=== PATIENT | male | born 1945 | race Caucasian/White ===

== ENCOUNTER 2018-11-27 11:18 | Observation (INO) | payer MEDICARE ==
[2018-11-20 11:57] LABS: BASOPHILS # (AUTO) 0.1 (0.0-0.1); BASOPHILS % 0.9 % (0.0-1.0); EOSINOPHILS # (AUTO) 0.2 (0.0-0.4); EOSINOPHILS % 2.7 % (0.0-6.0); HEMATOCRIT 48.8 % (38.2-49.6); HEMOGLOBIN 16.6 g/dL (14.0-18.0); LYMPHOCYTES # (AUTO) 1.5 (1.0-3.2); LYMPHOCYTES % 18.3 % (18.0-39.1); MEAN CORPUSCULAR HEMOGLOBIN 30.1 pg (28-32); MEAN CORPUSCULAR VOLUME 88.4 fL (81-99); MONOCYTES # (AUTO) 0.8 (0.2-0.8); MONOCYTES % 9.7 % (4.4-11.3); NEUTROPHILS # (AUTO) 5.6 (2.1-6.9); NEUTROPHILS % 68.2 % (38.7-80.0); PLATELET COUNT 182 x10e3/uL (140-360); RED BLOOD COUNT 5.52 x10e6/uL (4.3-5.7); RED CELL DISTRIBUTION WIDTH 13.5 % (11.7-14.4)
[2018-11-20 12:11] LABS: ALANINE AMINOTRANSFERASE 23 IU/L (0-55); ALBUMIN/GLOBULIN RATIO 1.4 (0.8-2.0); ALKALINE PHOSPHATASE 94 IU/L (40-150); ANION GAP 14.3 mmol/L (8-16); BLOOD UREA NITROGEN 18 mg/dL (7-26); BUN/CREATININE RATIO 18 (6-25); CALCIUM 9.6 mg/dL (8.4-10.2); CARBON DIOXIDE 26 mmol/L (22-29); CHLORIDE 105 mmol/L (98-107); CREATININE, SERUM 1.01 mg/dL (0.72-1.25); EST GLOMERULAR FILTRATION RATE > 60 ML/MIN (60-); GLUCOSE 78 mg/dL (74-118); POTASSIUM 4.3 mmol/L (3.5-5.1); SODIUM 141 mmol/L (136-145)
--- NOTE | 2018-11-20 13:14 | Diagnostic Imaging Report ---
PROCEDURE: X-RAY CHEST, TWO VIEWS COMPARISON: 11/11/2013 INDICATIONS: PRE OP FOR KIDNEY STONE SX FINDINGS: Lungs are well-inflated. No focal airspace consolidation, pleural effusion, or pneumothorax. Stable cardiomediastinal contour with postsurgical changes of the mediastinum and surgical hardware in the anterior chest wall. Right upper quadrant surgical clips also unchanged and likely related to prior cholecystectomy. Calcified granuloma left midlung also unchanged. No acute osseous abnormality. CONCLUSION: No acute cardiopulmonary abnormality. Dictated by: Preet Heck M.D. on 11/20/2018 at 13:18 Electronically approved by: Preet Heck M.D. on 11/20/2018 at 13:18
[~2018-11-27] VITALS: Ht 177.8 cm; Wt 93.0 kg
[~2018-11-27 11:18] MED LIST: ASPIR 8181 MG PO; ATORVASTATIN CA40 MG PO; CEPHALEXIN500 MG PO; DIOVAN80 MG PO; FINASTERIDE5 MG PO; FLOMAX0.4 MG PO; KEFLEX250 MG PO; KEFLEX500 MG PO; LOSARTAN POTASS50 MG PO; MACROBID 100 M100 MG PO; VIT B12 PO; VIT D PO
--- OUTSIDE RECORDS SUMMARY | 2018-11-27 11:20 | XMS REPORT ---
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 Allergies, Adverse Reactions, Alerts This patient has no known allergies or adverse reactions. Medications This patient has no known medications. Results Test Description Test Time Test Comments Text Results Atomic Results Result Comments CHEST 2 VIEWS 2018-11-20 13:18:00 [place] [address] Patient Name: LISSETH FERGUSON MR #: [id number] : 1945 Age/Sex: 73/M Req #: [id number] Adm Physician: Ordered by: LAKSHMI BAH MD Report #: [id number] Location: OR Room/Bed: Procedure: [id number] DX/CHEST 2 VIEWS Exam Date: 11/20/18 Exam Time: 1100 REPORT STATUS: Signed PROCEDURE: X-RAY CHEST, TWO VIEWS COMPARISON: 11/11/2013 IN DICATIONS: PRE OP FOR KIDNEY STONE SX FINDINGS: Lungs are well-inflated. No focal airspace consolidation, pleural effusion, or pneumothorax. Stable cardiomediastinal contour with postsurgical changes of the mediastinum and surgical hardware in the anterior chest wall. Right upper quadrant surgical clips also unchanged and likely related to prior cholecystectomy. Calcified granuloma left midlung also unchanged. No acute osseous abnormality. CONCLUSION: No acute cardiopulmonary abnormality. Dictated by: Lynette Mahmood M.D. on 11/20/2018 at 13:18 Electronically approved by: Lynette Mahmood M.D. on 11/20/2018 at 13:18 Dictated By: LYNETTE MAHMOOD MD 17 Transcribed By: NAHUM on 11/20/181317 COPY TO: LAKSHMI BAH MD FLUORO GUIDANCE [address]/REM [facility] [address] [place] [address] Patient Name: LISSETH FERGUSON MR #: [id number] : 1945 Age/Sex: 71/M Req #: [id number] Adm Physician: Ordered by: PEDRITO ROJO MD Report #: [id number] Location: DX Room/Bed: Procedure: [id number] DX/FLUORO GUIDANCE FRED [address]/REM Exam Date: 02/28/17 Exam Time: 1430 REPORT STATUS: Signed PROCEDURE: FLUORO GUIDANCE FRED [address] PL/REM COMPARISON: None. INDICATIONS: Central venous catheter. FINDINGS: Focused physical examination demonstrated a non-tunneled right subclavian central venous catheter. A body designer film was obtained which demonstrated the right subclavian temporary central venous catheter with tip projecting over the expected region of the right atrium. The existing catheter was prepped and draped in usual sterile fashion. The sutures were cut. The catheter was removed. Visual section of the catheter demonstrated the catheter to be intact. Hemostasis was obtained with manual pressure. A sterile dressing was applied. A postprocedure image was obtained. There were no immediate complications. The patient tolerated the procedure well. CONCLUSION: Suc cessful removal of the right subclavian central venous catheter with fluoroscopic guidance. Dictated by: Lisseth Dennison M.D. on 02/28/2017 at 15:03 Electronically approved by: Lisseth Dennison M.D. on 02/28/2017 at 15:03 Dictated By: LISSETH DENNISON MD 150 Transcribed By: NAHUM on 02/28/17 1503 COPY TO: PEDRITO ROJO MD ABDOMEN-1VIEW (KUB) [place] [address] Patient Name: LISSETH FERGUSON MR #: [id number] : 1945 Age/Sex: 71/M Req #: [id number] Adm Physician: SUMIT MENA MD Ordered by: HUGO CARVAJAL MD Report #: [id number] Location: ICU Room/Bed: [place] [address] Procedure: [id number] DX/ABDOMEN-1VIEW (KUB) Exam Date: 02/07/17 Exam Time: 0935 REPORT STATUS: Signed PROCEDURE: X-RAY ABDOMEN - KUB COMPARISON: 12/14/2016. INDICATIONS: CALCULUS OF KIDNEY FINDINGS: The bowel gas pattern shows no dilated, air-filled loops of bowel. Previously described calcification projecting over the left renal shadow is not clearly identified on current study, nor are the multiple ovoid pelvic calcifications described on the comparison. Regional skeletal structures are intact. Degenerative disc changes of the lower lumbar spine. Surgical clips project over the right upper quadrant of the abdomen compatible with prior cholecystectomy. CONCLUSION: Bladder and left renal calculi described on the comparison examination are not clearly identified on the current study. Dictated by: Lynette Mahmood M.D. on 02/07/2017 at 10:27 Electronically approved by: Lynette Mahmood M.D. on 02/07/2017 at 10:27 Dictated By: LYNETTE MAHMOOD MD 1027 Transcribed By: NAHUM on 02/07/17 1027 COPY TO: HUGO CARVAJAL MD CHEST SINGLE (PORTABLE) [place] [address] Patient Name: LISSETH FERGUSON MR #: [id number] : 1945 Age/Sex: 71/M Req #: [id number] Adm Physician: SUMIT MENA MD Ordered by: ESTUARDO TANNER MD Report #: [id number] Location: ICU Room/Bed: [place] [address] Procedure: [id number] DX/CHEST SINGLE (PORTABLE) Exam Date: 02/07/17 Exam Time: 0515 REPORT STATUS: Signed CHEST SINGLE (PORTABLE), 02/07/2017 5:00 AM Technique: CHEST SINGLE (PORTABLE) Comparison: 02/06/2017 Clinical history: Pneumonia Findings: Limited portable view. Anterior chest hardware again noted. Stable cardiac silhouette. Mild central perihilar/interstitial opacity, similar to prior. Impression: 1. Lines/Tubes: Right central venous catheter tip near the cavoatrial junction. 2. No significant change. Signed by: Dr Shayy Wilkes MD on 02/07/2017 6:01 AM Dictated By: SHAYY WILKES MD 06 Transcribed By: HAYDER on 02/07/17 06 COPY TO: ESTUARDO TANNER MD CHEST XRAY LINE PLACEMENT [facility] [address] [place] [address] Patient Name: LISSETH FERGUSON MR #: [id number] : 1945 Age/Sex: 71/M Req #: [id number] Adm Physician: SUMIT MENA MD Ordered by: ESTUARDO TANNER MD Report #: [id number] Location: [facility] Room/Bed: [place] [address] Procedure: [id number] DX/CHEST XRAY LINE PLACEMENT Exam Date: 02/06/17 Exam Time: 1210 REPORT STATUS: Signed PROCEDURE: CHEST XRAY LINE PLACEMENT COMPARISON: Chest x-ray, 02/06/17, 1001 hrs. INDICATIONS: LINE PLACEMENT FINDINGS: Lines and tubes: Interval placement of right subclavian catheter. The catheter is partially obscured by the mediastinum due to patient rotation. Catheter tip appears to extend to the lower SVC. Cardiac silhouette remains mildly enlarged. Again noted is haziness at the left lung base likely due to a combination of atelectasis and epicardial fat-pad, accentuated by low lung volumes. No pneumothorax. Upper abdomen unremarkable with no free air. No acute bony abnormality. Hardware on the anterior chest wall again noted. CONCLUSION: 1. No acute change in appearance of the chest. 2. Interval placement of right subclavian catheter extending to the lower SVC. No pneumothorax. Dictated by: Estuardo Rivero M.D. on 02/06/2017 at 12:36 Electronically approved by: Estuardo Rivero M.D. on 02/06/2017 at 12:36 Dictated By: ESTUARDO RIVERO MD 1236 Transcribed By: NAHUM on 02/06/17 1236 COPY TO: ESTUARDO TANNER MD CHEST SINGLE (PORTABLE) [place] [address] Patient Name: LISSETH FERGUSON MR #: [id number] : 1945 Age/Sex: 71/M Req #: [id number] Adm Physician: Ordered by: ESTUARDO TANNER MD Report #: [id number] Location: ER Room/Bed: Procedure: [id number] DX/CHEST SINGLE (PORTABLE) Exam Date: 02/06/17 Exam Time: 1008 REPORT STATUS: Signed PROCEDURE: CHEST SINGLE (PORTABLE) COMPARISON: Chest x-ray, 11/11/13 INDICATIONS: FEVER, ANXIETY FINDINGS: Lines and tubes: None The cardiac silhouette is moderately enlarged. There is haziness at the left lung base, likely representing a combination of atelectasis and overlying epicardial fat pad. Trace left pleural effusion may also be present, likely accentuated by low lung volumes. Right lung is expanded and clear. No pneumothorax. Upper abdomen unremarkable with no free air. Hardware along the anterior chest wall is again noted. Surgical clips are also seen in the left cervical area. CONCLUSION: Atelectasis and trace effusion at the left lung base, likely accentuated by low lung volumes. Mild enlargement of the cardiac silhouette. Dictated by: Estuardo Rivero M.D. on 02/06/2017 at 10:48 Electronically approved by: Estuardo Rivero M.D. on 02/06/2017 at 10:48 Dictated By: ESTUARDO RIVERO MD 1048 Transcribed By: NAHUM on 02/06/178 COPY TO: ESTUARDO TANNER MD
[2018-11-27] MEDS ORDERED: MEROPENEM 1GM 100 ML IV ONE (11:45)
[2018-11-27] MEDS ORDERED: CIPRO500 MG PO (11:59)
[2018-11-27] MEDS ORDERED: IOPAMIDOL 610MG/1ML 300 MG/ML VIAL IV ONE (13:11)
[2018-11-27] MEDS ORDERED: B&O 60MG R/S 60 MG SUPP PR ONE (15:07)
[2018-11-27] MEDS ORDERED: FENTANYL CITRATE/PF 100MCG/2 ML INJ ONE ×2 (16:02→18:46)
[2018-11-27] MEDS ORDERED: ONDANSETRON HCL INJ 2MG/ML 2ML 2 MG/ML VIAL ONE (16:12)
[2018-11-27 17:30] VITALS: BP 141/77
[2018-11-27] MEDS ORDERED: HYDROCODONE/APAP 5MG-325MG TAB PO PRN (17:30)
[2018-11-27] MEDS ORDERED: BELLADONNA RC PRN (17:30)
[2018-11-27] MEDS: LACTATED RINGER'S 1,000 ML IV SCH (17:50)
[2018-11-27] MEDS ORDERED: B&O 60MG R/S 60 MG SUPP PR PRN (18:00)
[2018-11-27] MEDS ORDERED: MIDAZOLAM HCL 2 MG/2 ML VIAL ONE (18:46)
[2018-11-27] MEDS: CIPROFLOXACIN 500 MG TAB PO SCH (18:48)
[2018-11-27] MEDS: MEROPENEM 1GM 100 ML IV SCH (18:48)
[2018-11-27 19:14] VITALS: BP 141/77
[2018-11-27 19:15] VITALS: BP 141/77
[2018-11-27 20:00] VITALS: BP 129/79
--- NOTE | 2018-11-27 20:01 | Operative Report ---
DATE OF PROCEDURE: 11/27/2018 SURGEON: Bernardo Lucas MD PREOPERATIVE DIAGNOSES: Urinary retention, severe trabeculated bladder, 4 to 5 cm bladder stone. POSTOPERATIVE DIAGNOSES: Urinary retention, severe trabeculated bladder, 4 to 5 cm bladder stone. OPERATIONS PERFORMED: Cystoscopy, laser lithotripsy, retrograde pyelogram, and transurethral resection and plasma vaporization of the prostate with bipolar energy. FINDINGS: A very large prostate, very large intravesical component, severe trabeculation with cellules and saccules as well as two diverticulum, one in particular right by the trigone. The ureteral orifice on the left side was the only one seen. PROCEDURE IN DETAIL: With the patient under satisfactory general anesthesia, the patient was placed in the supine position on the operating table, legs were placed on stirrups, genitalia was then prepped with Betadine soap and solution and draped in usual manner. A time-out was obtained. Everybody agreed with the procedure as planned. At this point, cystoscopy was performed with a 22-Macedonian cystoscope. A single stone was identified in the bladder. I looked for any other stone particularly in the large diverticulum and I could not see any. The stone was then treated with the laser lithotripsy 550 fiber at 2.5 berry. Multiple shocks were given to the stone until the stone was broken into multiple fragments and these fragments were then elicited out of the bladder. The stones were sent in for analysis. At this point, the cystoscope was removed and replaced with a continuous-flow resectoscope. Using the loop electrode first, TUR was done without any complications. Approximately 35 to 40 g of tissue was removed. The button electrode was then introduced and plasma vaporization of the remaining tissue was done with electrocauterization to control bleeding. Once that was done and accomplished then I rechecked the bladder again. Ellik evacuator was used to remove all of the prostatic chips from the bladder as well as any remaining bladder stone fragments. I checked to make sure there were no fragments of stones or tissue inside the large diverticulum and at this point instruments were removed, replaced with a 22-Macedonian Jonas catheter. Irrigation was done until the return was clear, and B and O suppository were placed in the rectum. The patient was then taken to recovery room in satisfactory condition. DISCHARGE INSTRUCTIONS: The patient was kept overnight for observation. The patient had bypass surgery and stents and a consultation with his director of photography, Dr. Burger was obtained. The next day, Dr. Burger agreed with this discharge and the patient was urologically stable. He was sent home on tramadol and Cipro. He is to continue all his other medications except aspirin. He will be seen in the office on Sunday five days from now to remove the Jonas and give him a voiding trial. I discussed this with the and I told her without fail that he was going to have severe urgency and that urgency may remain for 4 to 8 weeks and we may have to give him anticholinergics to relax the bladder. I also gave her a picture that I took in the case of the stone. If the patient has to stay an extra day, I will be dictating a separate discharge summary to relay the reason why the patient stayed. MD AMADOR Garner/MODL /[id number]
[2018-11-27 20:30] VITALS: BP 129/79
[2018-11-27] MEDS ORDERED: ATORVASTATIN 40 MG TAB PO SCH (21:00)
[2018-11-27] MEDS ORDERED: VALSARTAN 80 MG TAB PO SCH (21:00)
[2018-11-27] MEDS ORDERED: NON-FORMULARY MEDICATION (Atorvastatin Calcium 40 MG) PO SCH (21:00)
[2018-11-27] MEDS: TAMSULOSIN HCL 0.4 MG CAP PO SCH (21:54)
--- NOTE | 2018-11-27 21:55 | NUR ---
NO RESPIRATORY DISTRESS OBSERVED, GAMEZ CATHETER INTACT WITH URINE COLOR CLEARING OUT. NORCO OFFER FOR PAIN BUT THE PATIENT REFUSED THE MEDICATION AND STATED "I'M NOT HURTING AT THIS TIME." CALL LIGHT WITHIN EASY REACH, ASSISTED WITH ADLS, HE'S TOLD TO CALL FOR ASSISTANCE NEEDED.
[2018-11-28] VITALS: BP 127/67
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
--- NOTE | 2018-11-28 01:35 | NUR ---
ROUNDS MADE, PATIENT ASLEEP BUT EASY TO AROUSE. HE DENIES PAIN, NO RESPIRATORY DISTRESS OBSERVED AND HIS URINE IS CLEARING OUT.
[2018-11-28] MEDS: MEROPENEM 1GM 100 ML IV SCH ×2 (02:09→10:06)
[2018-11-28] MEDS: LACTATED RINGER'S 1,000 ML IV SCH ×2 (02:09→09:40)
[2018-11-28 04:00] VITALS: BP 119/71
--- NOTE | 2018-11-28 04:37 | NUR ---
PATIENT ASLEEP, HE'S EASY TO AROUSE. NO RESPIRATORY DISTRESS OBSERVED, HE DENIES PAIN. CALL LIGHT WITHIN EASY REACH, URINE LIGHT PINK IN THE COLLECTING TUBE WITHOUT CLOTS.
[2018-11-28 08:28] VITALS: BP 134/64
[2018-11-28] MEDS: CIPROFLOXACIN 500 MG TAB PO SCH (09:00)
[2018-11-28] MEDS: TAMSULOSIN HCL 0.4 MG CAP PO SCH (09:00)
[2018-11-28 10:45] VITALS: BP 134/64
[2018-11-28 12:54] VITALS: BP 151/68
--- NOTE | 2018-11-28 13:16 | Diagnostic Imaging Report ---
Date and Time: 11/27/2018 Procedure: Retrograde pyelogram image guidance Pre-operative diagnosis: Bladder calculi Post-operative diagnosis: Same Radiation Data: Exposures: 0 Fluoro time: 00:00:25 Cumulative area dose product: 290.24 cGycm2 Cumulative air kerma: 8.12 mGy DISCUSSION: Retrograde polygrams injection of the left ureter demonstrates patent flow of contrast with no filling defect to suggest stone, mass, or other obstructive lesion. No hydronephrosis. FINDINGS: Patent left ureter. IMPRESSION: Retrograde pyelogram showing patent retrograde flow of contrast through left ureter. No evidence of obstruction or stenosis. Signed by: Jerome Mccray MD on 11/28/2018 1:13 PM
[2018-11-28] MEDS ORDERED: ONDANSETRON HCL INJ 2MG/ML 2ML 2 MG/ML VIAL ONE (19:40)
[2018-11-28] MEDS ORDERED: SEVOFLURANE INHAL SOLN 250 ML PEN BTL ONE (19:40)
[2018-11-28] MEDS ORDERED: PROPOFOL IV EMULSION 10 MG/ML 20 ML VIAL ONE (19:40)
[2018-11-28] MEDS ORDERED: ACETAMINOPHEN 1000 MG/100 ML IV ONE (19:40)
[2018-11-28] MEDS ORDERED: LIDOCAINE HCL 2% LOCAL INJ 5 ML SDV VIAL INJ ONE (19:40)
[2018-11-28] MEDS ORDERED: DEXAMETHASONE SOD PHOS INJ 4 MG/ML VIAL ONE (19:40)
== END 2018-11-28 13:36 | disposition home or self-care (01) ==
LOC: OR 11:18 → PACU V 15:35 → MED/SURG 16:22
PROVIDERS: ADMIT Urology; ATTEND Urology
DX: N21.0 Calculus in bladder (principal); E78.5 Hyperlipidemia, unspecified; I25.2 Old myocardial infarction; I25.10 Atherosclerotic heart disease of native coronary artery without angina pectoris; Z95.1 Presence of aortocoronary bypass graft; I65.29 Occlusion and stenosis of unspecified carotid artery; Z87.442 Personal history of urinary calculi; Z87.891 Personal history of nicotine dependence; N40.1 Benign prostatic hyperplasia with lower urinary tract symptoms; R33.8 Other retention of urine; N32.89 Other specified disorders of bladder
CPT/HCPCS: 36415; 52318; 52601; 71046; 74420; 80053; 85025; 87086; 87186 ×2; 88300; 88305; 88342; 93005; 96367; C1758; G0378 ×2; J0131; J1100; J2001; J2185 ×2; J2250; J2405 ×2; J2704; J7121; Q9967; J3010

== ENCOUNTER 2019-11-24 04:01 | Inpatient (IN) | payer OTHER ==
[~2019-11-24] VITALS: Ht 177.8 cm; Wt 100.2 kg
[2019-11-24] VITALS (17 sets, daily range): BP systolic 122–173; BP diastolic 61–91
[~2019-11-24 04:01] MED LIST changes: +CIPRO500 MG PO
[2019-11-24] MEDS ORDERED: SODIUM CHLORIDE 0.9% 1000ML 1,000 ML IV STA (04:13)
--- NOTE | 2019-11-24 04:16 | Emergency Department Note ---
History of Present Illnes History of Present Illness History of Present Illness This is a 74 year old male brought by EMS CP 45 min prior to arrival. Prior to arrival patient was in ventricular tachycardia and was defibrillated. Arrived in respiratory distress. Patient seen in Bed 8 in extremis, combative and markedly confused Historian: Four H Agent/EMS Arrival Mode: [place] Onset (how long ago): minute(s) (30) Severity: severe Onset quality: sudden Duration (how long): hour(s) (1) Timing of current episode: constant Progression: worsening Associated symptoms: Reports confusion, Reports chest pain, Reports shortness of breath Treatments prior to arrival: none Past Medical/Family History Physician Review I have reviewed the patient's past medical and family history. Any updates have been documented here. Past Medical History Unable to obtain PMH: altered mental status Other Medical History: HIGH CHOLESTEROL Other Surgery: BYPASS SURGERY 6 VESSELS IN 2005 KIDNEY STONES REMOVED Lithotripsy Social History Smoking Cessation: Never Smoker Alcohol Use: None Any Illegal Drug Use: No Other Last Tetanus: UTD Review of Systems Review of Systems Constitutional: Reports no symptoms EENTM: Reports no symptoms Cardiovascular: Reports chest pain Respiratory: Reports dyspnea Gastrointestinal: Reports no symptoms Genitourinary: Reports no symptoms Musculoskeletal: Reports no symptoms Integumentary: Reports no symptoms Neurological: Reports no symptoms Psychological: Reports no symptoms Endocrine: Reports no symptoms Hematological/Lymphatic: Reports no symptoms Physical Exam Related Data Allergies: Coded Allergies: adhesive tape (Verified Allergy, Unknown, 02/06/17) morphine (Verified Allergy, Unknown, 02/06/17) Triage Vital Signs Vital Signs Date Time Temp Pulse Resp B/P (MAP) Pulse Ox O2 Delivery O2 Flow Rate FiO2 11/24/19 04:02 97.2 76 17 149/80 100 Nasal Cannula 3.0 Vital signs reviewed: Yes Physical Exam CONSTITUTIONAL Constitutional: Present morbidly obese, Present distressed, Present ill appearing HENT HENT: Present normocephalic, Present atraumatic, Present oropharynx clear/moist, Present nose normal HENT L/R: Present left ext ear normal, Present right ext ear normal EYES Eyes: Reports PERRL, Reports conjunctivae normal NECK Neck: Present ROM normal PULMONARY Pulmonary: Present effort normal, Present breath sounds normal CARDIOVASCULAR Cardiovascular: Present irregular rhythm, Present tachycardia GASTROINTESTINAL Abdominal: Present soft, Present nontender, Present bowel sounds normal GENITOURINARY Genitourinary: Present exam deferred SKIN Skin: Present warm, Present dry MUSCULOSKELETAL Musculoskeletal: Present ROM normal NEUROLOGICAL Neurological: Present alert, Present other (markedly confused); Absent oriented x 3 PSYCHOLOGICAL Psychological: Present other (anxious) Results Laboratory Lab results reviewed: Yes Laboratory comments Laboratory Tests Test 11/24/19 04:21 11/24/19 04:00 Arterial Blood pH 7.39 (7.35-7.45) Arterial Blood Partial Pressure CO2 32 mmHg (35-45) Arterial Blood Partial Pressure O2 95 mmHg (80-105) Arterial Blood HCO3 19 mmol/L (22-26) Arterial Blood Oxygen Saturation 97.0 % (95-98) Arterial Blood Base Excess -6.0 mmol/L (-2 - 3) FiO2 21 % White Blood Count 12.06 x10e3/uL (4.8-10.8) Red Blood Count 5.66 x10e6/uL (4.3-5.7) Hemoglobin 17.0 g/dL (14.0-18.0) Hematocrit 50.7 % (38.2-49.6) Mean Corpuscular Volume 89.6 fL (81-99) Mean Corpuscular Hemoglobin 30.0 pg (28-32) Mean Corpuscular Hemoglobin Concent 33.5 g/dL (31-35) Red Cell Distribution Width 14.0 % (11.7-14.4) Platelet Count 197 x10e3/uL (140-360) Neutrophils (%) (Auto) 48.8 % (38.7-80.0) Lymphocytes (%) (Auto) 37.1 % (18.0-39.1) Monocytes (%) (Auto) 10.0 % (4.4-11.3) Eosinophils (%) (Auto) 3.0 % (0.0-6.0) Basophils (%) (Auto) 0.8 % (0.0-1.0) Neutrophils # (Auto) 5.9 (2.1-6.9) Lymphocytes # (Auto) 4.5 (1.0-3.2) Monocytes # (Auto) 1.2 (0.2-0.8) Eosinophils # (Auto) 0.4 (0.0-0.4) Basophils # (Auto) 0.1 (0.0-0.1) Absolute Immature Granulocyte (auto 0.04 x10e3/uL (0-0.1) Sodium Level 141 mmol/L (136-145) Potassium Level 3.5 mmol/L (3.5-5.1) Chloride Level 107 mmol/L (98-107) Carbon Dioxide Level 22 mmol/L (22-29) Anion Gap 15.5 mmol/L (8-16) Blood Urea Nitrogen 21 mg/dL (7-26) Creatinine 1.17 mg/dL (0.72-1.25) Estimat Glomerular Filtration Rate > 60 ML/MIN (60-) BUN/Creatinine Ratio 18 (6-25) Glucose Level 141 mg/dL (74-118) Lactic Acid Level 5.0 mmol/L (0.5-2.0) Calcium Level 9.5 mg/dL (8.4-10.2) Total Bilirubin 0.8 mg/dL (0.2-1.2) Aspartate Amino Transf (AST/SGOT) 18 IU/L (5-34) Alanine Aminotransferase (ALT/SGPT) 27 IU/L (0-55) Alkaline Phosphatase 78 IU/L (40-150) Creatine Kinase 26 IU/L (30-200) Creatine Kinase MB 0.90 ng/mL (0-5.0) Troponin I 0.010 ng/mL (0-0.300) B-Type Natriuretic Peptide 23.9 pg/mL (0-100) Total Protein 7.2 g/dL (6.5-8.1) Albumin 4.1 g/dL (3.5-5.0) Globulin 3.1 g/dL (2.3-3.5) Albumin/Globulin Ratio 1.3 (0.8-2.0) Imaging Imaging results reviewed: Yes Impressions [place] [id number] Patient Name: LISSETH FERGUSON MR #: [id number] : 1945 Age/Sex: 74/M Req #: [id number] Adm Physician: Ordered by: NICKI ROGERS DO Report #: [id number] Location: ER Room/Bed: Procedure: [id number] CT/CT CHEST W Exam Date: Exam Time: REPORT STATUS: Signed EXAM: CT Chest WITH contrast 11/24/2019 6:21 AM INDICATION: Shortness of breath COMPARISON: None TECHNIQUE: Chest was scanned utilizing a multidetector helical scanner from the lung apex through the level of the adrenal glands without administration of IV contrast. Coronal and sagittal reformations were obtained. Pulmonary embolism protocol was performed. IV CONTRAST: 100 mL of Omnipaque 300 COMPLICATIONS: None RADIATION DOSE: Total DLP: 642 mGy*cm Estimated effective dose: (DLP x 0.014 x size factor) mSv CTDIvol has been reviewed. It is below the limits set by the Radiation Protocol Committee (RPC). Dose modulation, iterative reconstruction, and/or weight based adjustment of the mA/kV was utilized to reduce the radiation dose to as low as reasonably achievable. FINDINGS: LINES/ TUBES: None. LUNGS AND AIRWAYS: No concerning pulmonary mass or consolidation. PLEURA: The pleural spaces are clear. HEART AND MEDIASTINUM: The thyroid gland is normal. No mediastinal, hilar or axillary lymphadenopathy. The heart is mildly enlarged. There is no pericardial effusion. Advanced coronary artery calcifications with surgical change. UPPER ABDOMEN: Surgically absent gallbladder. Partially imaged 3.2 x 3.4 cm soft tissue attenuation nodular focus of the right renal upper pole (image 126). Punctate nonobstructing right intrarenal calculus. BONES: No acute osseous abnormality. Postsurgical and/or posttraumatic changes of the sternum with hardware fixation. SOFT TISSUES: Unremarkable. IMPRESSION: 1. No acute thoracic abnormality. No pulmonary embolus. 2. Incidental partially imaged 3.2 x 3.4 cm nodular focus of the right renal upper pole, otherwise suboptimally evaluated due to technique. This may represent a prominent renal lobulation; however, nonemergent evaluation with a dedicated renal mass protocol CT scan of the abdomen is recommended to exclude renal mass. Signed by: Trinity May MD on 11/24/2019 6:48 AM Dictated By: TRINITY MAY MD 7 Transcribed By: HAYDER on 11/24/19647 COPY TO: NICKI ROGERS DO~ Procedures 12 Lead ECG Interpretation ECG Interpretation : ECG: ECG 1 Hand Rug Braider: Interpreted by ED physician Date: Nov 24, 2019 Time: 03:59 Prior ECG tracings: reviewed Rhythm: atrial fibrillation ST segments normal: No ST segment flattening: V4, V5, V6 Q waves: III Clinical Impression: abnormal ECG ABG Interpretation ABG Results: ABG 1 Interpretation: normal Critical Care Time Total Critical Care Time (min): 32 Critcal care necessary due to: cardiac failure, respiratory failure Critcal care time spent by me: develop tx plan w patient/surrogate, discussion w consultants, discussion w primary provider, examination of patient, obtaining hx from patient/surrogate, order/perform tx or interventions, order/review laboratory studies, order/review radiographic studies, pulse oximetry, re- evaluation of patient condition, review of old charts, vascular access procedures Assessment & Plan Medical Decision Making MDM 74 yom presents with CP . ACS, PE, costocondritis, Chest wall pain, and pneumothorax considered. labs, imaging and EKG reviewed . Plan to admit to the ICU Reassessment Reassessment Case d/w the DR Gerard Burger at 0504 and EKG reviewed. Agreement with STAT echocardiogram. Plan to admit to Dr Nimco Santiago's service to the ICU. Assessment & Plan Final Impression: (1) Ventricular tachycardia (paroxysmal) (2) ACS (acute coronary syndrome) Depart Disposition: ADMITTED Home Meds Reported Medications Ciprofloxacin Hcl (CIPRO) 500 Mg Tablet, 500 MG PO Q12H, #30 TAB 11/27/18 Tamsulosin Hcl* (FLOMAX*) 0.4 Mg Cap, 0.4 MG PO BID, #30 CAP 11/20/18 [Vit D] No Conflict Check, PO DAILY 11/20/18 [Vit B12] No Conflict Check, PO DAILY 11/20/18 Valsartan (DIOVAN) 80 Mg Tab, 40 MG PO HS, TAB 11/20/18 Atorvastatin Calcium (ATORVASTATIN CALCIUM) 40 Mg Tablet, 40 MG PO HS, #90 02/06/17 NICKI ROGERS DO Nov 24, 2019 04:16
[2019-11-24] MEDS ORDERED: NITROGLYCERIN/D5W 200 MCG/ML 250 ML IV STA (04:17)
[2019-11-24 04:29] LABS: ABG HCO3 19 mmol/L (22-26); ABG PCO2 32 mmHg (35-45); ABG PH 7.39 (7.35-7.45); ABG PO2 95 mmHg (80-105)
[2019-11-24 04:35] LABS: BASOPHILS # (AUTO) 0.1 (0.0-0.1); BASOPHILS % 0.8 % (0.0-1.0); EOSINOPHILS # (AUTO) 0.4 (0.0-0.4); HEMATOCRIT 50.7 % (38.2-49.6); LYMPHOCYTES # (AUTO) 4.5 (1.0-3.2); LYMPHOCYTES % 37.1 % (18.0-39.1); MEAN CORPUSCULAR HGB CONC 33.5 g/dL (31-35); MEAN CORPUSCULAR VOLUME 89.6 fL (81-99); MONOCYTES # (AUTO) 1.2 (0.2-0.8); NEUTROPHILS # (AUTO) 5.9 (2.1-6.9); NEUTROPHILS % 48.8 % (38.7-80.0); PLATELET COUNT 197 x10e3/uL (140-360); RED BLOOD COUNT 5.66 x10e6/uL (4.3-5.7)
[2019-11-24 04:57] LABS: ALANINE AMINOTRANSFERASE 27 IU/L (0-55); ALBUMIN 4.1 g/dL (3.5-5.0); ALBUMIN/GLOBULIN RATIO 1.3 (0.8-2.0); ALKALINE PHOSPHATASE 78 IU/L (40-150); ANION GAP 15.5 mmol/L (8-16); BLOOD UREA NITROGEN 21 mg/dL (7-26); BUN/CREATININE RATIO 18 (6-25); CALCIUM 9.5 mg/dL (8.4-10.2); CARBON DIOXIDE 22 mmol/L (22-29); CHLORIDE 107 mmol/L (98-107); CREATINE KINASE 26 IU/L (30-200); CREATININE, SERUM 1.17 mg/dL (0.72-1.25); EST GLOMERULAR FILTRATION RATE > 60 ML/MIN (60-); GLUCOSE 141 mg/dL (74-118); POTASSIUM 3.5 mmol/L (3.5-5.1); SODIUM 141 mmol/L (136-145)
[2019-11-24] MEDS ORDERED: ONDANSETRON HCL INJ 2MG/ML 2ML 2 MG/ML VIAL IV PRN (05:15)
[2019-11-24 05:18] LABS: B-TYPE NATRIURETIC PEPTIDE2 23.9 pg/mL (0-100)
[2019-11-24] MEDS ORDERED: ASPIRIN 325 MG TAB PO STA (05:18)
[2019-11-24] MEDS: PIPER-TAZ 3.375 GM 50 ML IV SCH ×3 (06:48→16:58)
[2019-11-24] MEDS: SODIUM CHLORIDE 0.9% 1000ML 1,000 ML IV SCH ×3 (06:48→16:19)
--- NOTE | 2019-11-24 06:52 | Diagnostic Imaging Report ---
EXAM: CT Chest WITH contrast 11/24/2019 6:21 AM INDICATION: Shortness of breath COMPARISON: None TECHNIQUE: Chest was scanned utilizing a multidetector helical scanner from the lung apex through the level of the adrenal glands without administration of IV contrast. Coronal and sagittal reformations were obtained. Pulmonary embolism protocol was performed. IV CONTRAST: 100 mL of Omnipaque 300 COMPLICATIONS: None RADIATION DOSE: Total DLP: 642 mGy*cm Estimated effective dose: (DLP x 0.014 x size factor) mSv CTDIvol has been reviewed. It is below the limits set by the Radiation Protocol Committee (RPC). Dose modulation, iterative reconstruction, and/or weight based adjustment of the mA/kV was utilized to reduce the radiation dose to as low as reasonably achievable. FINDINGS: LINES/ TUBES: None. LUNGS AND AIRWAYS: No concerning pulmonary mass or consolidation. PLEURA: The pleural spaces are clear. HEART AND MEDIASTINUM: The thyroid gland is normal. No mediastinal, hilar or axillary lymphadenopathy. The heart is mildly enlarged. There is no pericardial effusion. Advanced coronary artery calcifications with surgical change. UPPER ABDOMEN: Surgically absent gallbladder. Partially imaged 3.2 x 3.4 cm soft tissue attenuation nodular focus of the right renal upper pole (image 126). Punctate nonobstructing right intrarenal calculus. BONES: No acute osseous abnormality. Postsurgical and/or posttraumatic changes of the sternum with hardware fixation. SOFT TISSUES: Unremarkable. IMPRESSION: 1. No acute thoracic abnormality. No pulmonary embolus. 2. Incidental partially imaged 3.2 x 3.4 cm nodular focus of the right renal upper pole, otherwise suboptimally evaluated due to technique. This may represent a prominent renal lobulation; however, nonemergent evaluation with a dedicated renal mass protocol CT scan of the abdomen is recommended to exclude renal mass. Signed by: Tam Fallon MD on 11/24/2019 6:48 AM
[2019-11-24] MEDS ORDERED: IOPAMIDOL 370 MG/ML 200 ML INFUS..BTL INJ ONE ×3 (07:44→12:37)
[2019-11-24] MEDS ORDERED: SODIUM CHLORIDE 0.9% 50ML 50 ML ONE (07:45)
[2019-11-24 10:58] LABS: CHOL/HDL RATIO 3.8 (3.9-4.7)
[2019-11-24] MEDS ORDERED: MIDAZOLAM HCL 2 MG/2 ML VIAL ONE (11:24)
[2019-11-24] MEDS ORDERED: FENTANYL CITRATE/PF 100MCG/2 ML INJ ONE (11:24)
[2019-11-24] MEDS ORDERED: HEPARIN SOD/SOD CHLORIDE 2,000 ML ONE (11:25)
[2019-11-24] MEDS ORDERED: LIDOCAINE HCL 2% LOCAL 20 ML VIAL ONE (11:25)
[2019-11-24] MEDS ORDERED: SODIUM CHLORIDE 0.9% 1000ML 1,000 ML ONE (11:25)
[2019-11-24] MEDS ORDERED: CLOPIDOGREL BISULFATE 75 MG TAB PO ONE (11:30)
[2019-11-24 11:41] LABS: CREATINE KINASE MB 93.5 ng/mL (0-5.0)
--- NOTE | 2019-11-24 11:46 | Consultation ---
DATE OF CONSULTATION: 11/24/2019 REASON FOR CONSULTATION: Chest pain. CHIEF COMPLAINT: Chest pain. HISTORY OF PRESENT ILLNESS: This is a 74-year-old male with known history of CAD, status post CABG with sternal infection on lifelong antibiotic suppression, left CEA, hyperlipidemia, hypertension, smoker. The patient presents to [facility] ER with complaints of chest pain. Apparently en route in the ambulance service was noted to be in VFib and cyanotic with shock x1 with rhythm stabilization. Cardiology was consulted to evaluate the patient. The patient is seen in room, reports this morning around 3:00 a.m. or so woke up with severe chest pain, tightness with shortness of breath. EMS was called and after that patient does not remember much. However, does review reports that he continues with slight tightness, pressure sensations in his retrosternal region. 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 CURRENT HOME MEDICATION: Include aspirin 81 mg daily, atorvastatin 40 mg daily, valsartan 80 mg daily, Keflex 250 mg daily, carvedilol 12.5 mg b.i.d. PAST SURGICAL HISTORY: CABG x4 in 2010, 2017 with sternal infection on lifelong antibiotics, cholecystectomy, bilateral cataract surgery, kidney stone removal, left CEA in 2012, TURP in 2019. FAMILY HISTORY: His mother is alive at age 93, reported healthy. Father age 89. History of Alzheimer disease. SOCIAL HISTORY: He is . He is retired. He is a smoker and denies any alcohol use. ALLERGIES: INCLUDE FLOMAX, MOTRIN, PRAVASTATIN. REVIEW OF SYSTEMS: GENERAL: Denies any weight changes, fatigue, weakness, fevers, chills, or night sweats. SKIN: No rashes or bruises. HEENT: No nausea or vomiting. No vision changes, blurred vision, double vision, epistaxis, sore throat, swollen neck, or stiff neck. CARDIAC: Positive for chest pain. Positive for dyspnea on exertion. No orthopnea, PND, or lower extremity edema reported. RESPIRATORY: Positive shortness of breath. Denies any cough or hemoptysis. GI: Reports good appetite. No nausea, vomiting, diarrhea, constipation, melena, tarry bloody stools. URINARY: Denies any frequency, urgency, dysuria, hematuria. VASCULAR: Denies any lower extremity edema, claudication. MUSCULOSKELETAL: Generalized muscle pains, joint pains, back pains reported. NEUROLOGIC: Denies any numbness, tingling, weakness, paralysis, fainting, blackouts, seizures. HEMATOLOGY: Denies any bruising or anemia. ENDOCRINE: Denies any heat or cold intolerance, polyuria, polydipsia, or polyphagia. PHYSICAL EXAMINATION: VITAL SIGNS: Height 70 inches, weight 205 pounds. Vital signs currently temperature 98.7, pulse 76, respiratory rate 20, blood pressure 162/90, pulse ox 100 on room air. GENERAL: Appears stated age, reliable, informant currently with some chest pain. SKIN: No rashes or bruises noted. HEENT: Normocephalic. Pupils are equal and reactive. Extraocular movement intact. Trachea midline. Left CEA scar. Soft bilateral carotid bruits noted. HEART: Regular rate and rhythm, soft systolic murmur heard. PMI 5th and 4th intercostal space. ABDOMEN: Soft, nontender, and nondistended. No organomegaly noted. LUNGS: Bilateral breath sounds clear to auscultation. Good airway entry. MUSCULOSKELETAL: Good muscle strength throughout. Trace lower extremity edema. Also, the patient is noted with right groin hematoma. Apparently patient was attempted for central line. VASCULAR: +2 radial pulses bilaterally. +1 DP, PT pulses bilaterally. NEUROLOGIC: Cranial nerves 2 to 12 intact. LABORATORY DATA: White count 12, hemoglobin of 17, hematocrit of 50, platelets 197. Sodium 141, potassium 3.5, chloride 107, BUN 21, creatinine 1.1. Troponin 0.01. BNP 23. COVID pending. CT chest, no acute thoracic abnormalities. No PE. EKG showing sinus rhythm with ST depressions in V4, V6. ASSESSMENT: 1. Acute coronary syndrome. 2. Ventricular tachycardia arrest, status post shock. 3. Coronary artery disease, status post coronary artery bypass grafting. 4. 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 5. Hypertension. 6. Hyperlipidemia. PLAN: 1. The patient presents with chest pain, noted to be in ventricular tachycardia/VFib with shock successfully and currently in sinus rhythm. 2. Long discussion with the patient regarding ischemic evaluation, i.e., left heart catheterization. Risks, benefits and questions were answered. The patient wishes to proceed with left heart catheterization. 3. We will load patient on Plavix. 4. Aspirin, beta-sarah, statin therapy. 5. Echo to evaluate heart function and structure. 6. We will continue to monitor patient and further recommendations post left heart catheterization. Thank you very much for this consult. S/P arrest and shock For cath/ PCI Dictated by Preet Salinas, MIKAELA Lauren Burger MD DC/MODArnaldo /[id number] MTDD
[2019-11-24] MEDS ORDERED: HYDRALAZINE HCL 20 MG/ML VIAL ONE (12:43)
--- NOTE | 2019-11-24 14:41 | Operative Report ---
DATE OF PROCEDURE: 11/24/2019 SURGEON: Lauren Burger MD TITLE OF THE PROCEDURE: Left cardiac catheterization with graft injection. INDICATION: Survival of cardiac arrest with ventricular fibrillation, [id number] myocardial infarction. TECHNICAL DETAILS: After the usual sterile preparation and draping procedure, intravenous Versed and fentanyl given for sedation, local Xylocaine for local anesthesia. We choose as an axis of the left common femoral artery because of presence of hematoma in the right femoral area from the trial of putting central line in the emergency room at the time of the arrest. 4-[place] sheath established in the left common femoral artery. Rajan left 4 and 3D as well as left coronary artery bypass and multipurpose to engage the coronaries. At the end of the procedure, sheath was removed. Hemostasis was achieved manually. No complication. No blood loss. RESULTS: Coronary angiogram: 1. Left main. Subtotal with stenting collateral to LAD and circumflex, and they are all totally occluded. 2. LAD: Proximally occluded. 3. Circumflex: Proximally occluded. 4. Right coronary artery: Proximally occluded. 5. Left internal mammary artery to the LAD is patent with stent collateral to diagonal. 6. SVG to OM is occluded. 7. SVG to small PDA with retrograde flow to larger PLV, but there is 80% lesion in that larger PLV. Hemodynamic: Aorta pressure 140/70, LV pressure 140/22. Left ventriculogram: Right anterior oblique view showed akinetic inferior segment, ejection fraction of 40%. IMPRESSION: 1. Three-vessel coronary artery disease as well as left main disease. 2. Patent THOMPSON to LAD. 3. Occluded SVG to OM. 4. Patent SVG to small PDA with retrograde flow to larger PLV with 80% lesion in the PLV. 5. 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 6. Ejection fraction of 40%. COMPLICATIONS: None. BLOOD LOSS: None. RECOMMENDATION: Medical therapy and consultation with EP for consideration of ICD. MD KEILY Lechuga/MODL /[id number]
--- NOTE | 2019-11-24 14:58 | NUR ---
A small new hematoma was found at the left groin cath insertion site. Casimiro from electroplating laborer assessed the patient at bedside. Dressing was changed to help ease the tightness. Advised to continue to monitor hematoma. Pedal pulses are 2+ bilaterally.
[2019-11-24] MEDS: CARVEDILOL 12.5 MG TAB PO SCH (16:58)
--- NOTE | 2019-11-24 18:49 | NUR ---
Discussed with Dr. Marshall left groin hematoma that increased (from 2X2 to about 4X6 cms) despite extended bedrest.
[2019-11-24] MEDS: ATORVASTATIN 40 MG TAB PO SCH (20:23)
[2019-11-24] MEDS ORDERED: ATORVASTATIN 20 MG TAB PO SCH (21:00)
--- NOTE | 2019-11-24 21:28 | Consultation ---
DATE OF CONSULTATION: 11/24/2019 REASON FOR CONSULT: Ventricular fibrillation cardiac arrest. HISTORY OF PRESENT ILLNESS: This is a 74-year-old gentleman with no significant medical history other than hypertension, who presented with an episode of chest pain and syncope, when he presented to the ER he went into ventricular fibrillation, cardiac arrest, received external shocks, converted to sinus rhythm. He had an elevated troponin, underwent heart catheterization demonstrated coronary artery disease. No indication for intervention at this time, he has history of coronary bypass surgery with normal ejection fraction, currently recovering well in sinus rhythm. REVIEW OF SYSTEMS: CONSTITUTIONAL: Negative. CARDIOVASCULAR: As per HPI. RESPIRATORY: Negative. GASTROINTESTINAL: Negative. GENITOURINARY: Negative. MUSCULOSKELETAL: Negative. EYES: Negative. ENT: Negative. ALLERGY/IMMUNOLOGY: Negative. PSYCHIATRIC: Negative. PAST MEDICAL HISTORY: 1. Coronary artery disease. 2. History of myocardial infarction. PAST SURGICAL HISTORY: Coronary bypass surgery. SOCIAL HISTORY: Denies alcohol or smoking. FAMILY HISTORY: No premature coronary artery disease. PHYSICAL EXAMINATION: VITAL SIGNS: Blood pressure 138/60, pulse 70, respirations 20, and O2 saturations 98%. GENERAL: No acute distress. HEENT: Moist mucous membranes. CARDIOVASCULAR: Regular. RESPIRATORY: Clear. ABDOMEN: Soft and nontender. MUSCULOSKELETAL: 2+ distal pulses. NEUROLOGICAL: No focal deficits. SKIN: No lesions. PSYCHIATRIC: Normal thought process. EKG, sinus rhythm, intraventricular conduction delay, QRS duration 110 milliseconds. IMPRESSION: 1. Status post ventricular fibrillation cardiac arrest, successfully treated with external shocks. 2. Elevated troponin with heart catheterization demonstrating chronic coronary artery disease. No intervention at this time. 3. History of myocardial infarction and coronary bypass surgery. RECOMMENDATIONS: I had a long discussion with the patient explaining the nature of the disease. He had a primary cardiac event and has an indication for ICD for secondary prevention of sudden cardiac , explained to him the procedure, benefits, and risks. He voices understanding and wishes to proceed. We will plan for a dual-chamber cardiac defibrillator in anticipation for bradycardia or antiarrhythmic therapy as needed. We will add an atrial lead. Dual defibrillator to be performed. Thank you for letting us participate in [facility] Javier Riley MD C/MODL /[id number]
[2019-11-25] VITALS (16 sets, daily range): BP systolic 109–152; BP diastolic 57–120
[2019-11-25] MEDS: PIPER-TAZ 3.375 GM 50 ML IV SCH ×4 (00:27→17:08)
[2019-11-25] MEDS ORDERED: SODIUM CHLORIDE 0.9% 1000ML 1,000 ML ONE (00:48)
[2019-11-25] MEDS: SODIUM CHLORIDE 0.9% 1000ML 1,000 ML IV SCH (01:00)
[2019-11-25] MEDS ORDERED: ATROPINE SULFATE 1 MG/ML VIAL IV ONE (03:40)
[2019-11-25] MEDS ORDERED: ATROPINE SULFATE 0.1 MG/ML 10ML SYR ONE ×2 (03:49)
[2019-11-25 05:37] LABS: BASOPHILS % 0.4 % (0.0-1.0); EOSINOPHILS # (AUTO) 0.2 (0.0-0.4); EOSINOPHILS % 2.1 % (0.0-6.0); HEMATOCRIT 40.6 % (38.2-49.6); HEMOGLOBIN 13.7 g/dL (14.0-18.0); LYMPHOCYTES # (AUTO) 1.1 (1.0-3.2); LYMPHOCYTES % 13.7 % (18.0-39.1); MEAN CORPUSCULAR HEMOGLOBIN 29.8 pg (28-32); MEAN CORPUSCULAR HGB CONC 33.7 g/dL (31-35); MEAN CORPUSCULAR VOLUME 88.3 fL (81-99); MONOCYTES # (AUTO) 0.7 (0.2-0.8); MONOCYTES % 8.5 % (4.4-11.3); NEUTROPHILS # (AUTO) 5.8 (2.1-6.9); NEUTROPHILS % 74.9 % (38.7-80.0); PLATELET COUNT 151 x10e3/uL (140-360)
[2019-11-25 05:53] LABS: ALANINE AMINOTRANSFERASE 26 IU/L (0-55); ALBUMIN 3.2 g/dL (3.5-5.0); ALBUMIN/GLOBULIN RATIO 1.4 (0.8-2.0); ALKALINE PHOSPHATASE 55 IU/L (40-150); ANION GAP 12.9 mmol/L (8-16); BLOOD UREA NITROGEN 17 mg/dL (7-26); BUN/CREATININE RATIO 21 (6-25); CALCIUM 7.9 mg/dL (8.4-10.2); CARBON DIOXIDE 21 mmol/L (22-29); CHLORIDE 110 mmol/L (98-107); CREATININE, SERUM 0.82 mg/dL (0.72-1.25); EST GLOMERULAR FILTRATION RATE > 60 ML/MIN (60-); GLUCOSE 97 mg/dL (74-118); POTASSIUM 3.9 mmol/L (3.5-5.1); SODIUM 140 mmol/L (136-145)
[2019-11-25 07:00] LABS: CREATINE KINASE MB 39.1 ng/mL (0-5.0)
[2019-11-25] MEDS ORDERED: MIDAZOLAM HCL 2 MG/2 ML VIAL ONE ×2 (07:03→08:11)
[2019-11-25] MEDS ORDERED: LIDOCAINE 1% W/EPINEPHRINE 20 ML VIAL ONE (07:04)
[2019-11-25] MEDS ORDERED: FENTANYL CITRATE/PF 100MCG/2 ML INJ ONE (07:04)
[2019-11-25] MEDS ORDERED: BACITRACIN 50,000 UNIT VIAL ONE (07:05)
[2019-11-25] MEDS ORDERED: SODIUM CHLORIDE 0.9% 500ML 500 ML ONE (07:06)
[2019-11-25] MEDS ORDERED: VANCOMYCIN 1GM/NS 250 ML 500 ML ONE (07:06)
[2019-11-25] MEDS ORDERED: SODIUM CHLORIDE 0.9% 1000ML 2,000 ML ONE (07:06)
--- NOTE | 2019-11-25 07:14 | NUR ---
Patient transferred to mobile home laborer on Dopamine in stable condition via bed.
[2019-11-25] MEDS ORDERED: GENTAMICIN SULFATE 40 MG/ML 2 ML VIAL ONE (08:31)
[2019-11-25] MEDS: ASPIRIN 81 MG ENTERIC COATED PO SCH (10:24)
[2019-11-25] MEDS: CARVEDILOL 12.5 MG TAB PO SCH ×2 (10:26→17:08)
[2019-11-25] MEDS ORDERED: FUROSEMIDE INJ 10 MG/ML 4 ML VIAL IV ONE (10:30)
[2019-11-25] MEDS ORDERED: TRAMADOL HCL 50 MG TAB PO PRN (11:15)
--- NOTE | 2019-11-25 11:59 | Diagnostic Imaging Report ---
EXAMINATION: CHEST XRAY POST PROCEDURE INDICATION: ^POST PROCEDURE COMPARISON: CT chest 11/24/2019 FINDINGS: AP view TUBES and LINES: Interval placement of a left dual-lead pacemaker. LUNGS: Lungs are well inflated. Lungs are clear. There is no evidence of pneumonia or pulmonary edema. PLEURA: No pleural effusion or pneumothorax. HEART AND MEDIASTINUM: The cardiomediastinal silhouette is mildly enlarged. BONES AND SOFT TISSUES: No acute osseous lesion. Sternal hardware again noted. Soft tissues are unremarkable. UPPER ABDOMEN: No free air under the diaphragm. IMPRESSION: Interval placement of a left-sided dual-lead pacemaker. No apparent radiographic complication. Signed by: Tam Fallon MD on 11/25/2019 11:56 AM
[2019-11-25] MEDS ORDERED: CEFAZOLIN SOD 1 GM VIAL IV SCH (14:00)
[2019-11-25] MEDS ORDERED: METOPROLOL TARTRATE 25 MG TAB PO SCH (14:00)
--- NOTE | 2019-11-25 15:27 | Operative Report ---
DATE OF PROCEDURE: 11/25/2019 SURGEON: Javier Riley MD PREPROCEDURE DIAGNOSES: 1. Status post ventricular fibrillation cardiac arrest, treated with external shocks. 2. History of coronary artery disease and myocardial infarction. 3. History of coronary artery bypass surgery. 4. Coronary artery disease. No intervention indicated at this time. POSTPROCEDURE DIAGNOSES: 1. Status post ventricular fibrillation cardiac arrest, treated with external shocks. 2. History of coronary artery disease and myocardial infarction. 3. History of coronary artery bypass surgery. 4. Coronary artery disease. No intervention indicated at this time. ESTIMATED BLOOD LOSS: 10 mL , COMPLICATIONS: None. PROCEDURES PERFORMED: 1. Dual-chamber cardiac defibrillator placement. 2. Moderate sedation. Moderate conscious sedation was performed under my supervision, by a sedation trained nurse. Sedation approximately done time 30 minutes Versed and fentanyl. There were no complications. See sedation form for details. REASONING FOR DUAL-CHAMBER DEVICE: The patient has had episodes of bradycardia overnight, in fact he had some 7-8 seconds pauses intermittently, but have been treated with dopamine drip, indication for atrial pacing. DESCRIPTION OF PROCEDURE: After informed consent was obtained, the patient was brought to the electrophysiology laboratory in a fasting, nonsedated state. The area over his chest was prepped and draped in the usual sterile fashion. Moderate sedation and prophylactic antibiotics were given. A 1% lidocaine was used as local anesthetic and a 3 cm skin incision was made in the left subclavicular area. Electrocautery sharp and blunt dissection were used to bridge the muscular fascia and a pocket was created for event implantation of the device. Vascular access was obtained x2 in the left axillary vein using the modified Seldinger technique under ultrasound and fluoroscopy guidance. Two sheaths were placed, ventricular lead to the RV apex, R-wave 11, pacing threshold 0.5 at 0.4, impedance 900, atrial lead to the right atrial appendage P-wave 3, pacing 1 at 0.4, impedance 600, sheaths were removed from the body. Leads were secured to fascia using Ethibond. Pocket was irrigated with antibiotic solution using the pulse chemistry instructor. Hemostasis was meticulous. Leads connected to the device and entire ICD system placed in the pocket. We used vancomycin powder in the pocket and hemostasis was meticulous. Incision was closed using absorbable sutures and Dermabond. Patient tolerated the procedure well and procedure was incomplete. SUMMARY OF HARDWARE IMPLANTED: 1. The new defibrillator is [employer], serial #[id number]. 2. Atrial lead is a [employer], serial #[id number]. 3. Ventricular lead is a [employer] [id number]. IMPRESSION: Successful dual-chamber cardiac defibrillator implant via left axillary vein. PLAN: 1. Routine postop monitoring on telemetry bed. 2. Wean dopamine drip off in the next 2 hours. 3. Chest x-ray. 4. Follow up in two weeks. MD YADIEL Luna/SHAHZAD /[id number]
--- NOTE | 2019-11-25 15:35 | NUR ---
PATIENT TRANSFERRED TO ROOM 108, HE IS IN STABLE CONDITION. ORIENTED TO ROOM AND POLICIES. CALL LIGHT WITHIN REACH. BED IN THE LOWEST POSITION.
--- NOTE | 2019-11-25 19:27 | NUR ---
BEDSIDE SHIFT REPORT GIVEN TO ONCOMING NURSE. PATIENT IS RESTING IN BED, NO ACUTE DISTRESS NOTED. CALL LIGHT WITHIN REACH. BED IN THE LOWEST POSITION.
[2019-11-25] MEDS: ATORVASTATIN 40 MG TAB PO SCH (21:00)
[2019-11-26 00:39] VITALS: BP 150/74
[2019-11-26 04:00] VITALS: BP 155/82
[2019-11-26] MEDS: PIPER-TAZ 3.375 GM 50 ML IV SCH ×2 (05:54)
[2019-11-26 08:00] VITALS: BP 147/93
[2019-11-26 08:03] VITALS: BP 155/82
[2019-11-26] MEDS ORDERED: VANCOMYCIN 1GM/NS 250 ML 250 ML IV ONE (09:00)
[2019-11-26] MEDS: CARVEDILOL 12.5 MG TAB PO SCH (09:26)
[2019-11-26] MEDS: ASPIRIN 81 MG ENTERIC COATED PO SCH (09:26)
[2019-11-26] MEDS ORDERED: ASPIR 8181 MG PO (11:25)
[2019-11-26] MEDS ORDERED: CARVEDILOL12.5 MG PO (11:27)
--- NOTE | 2019-11-26 11:45 | NUR ---
Discharge instructions and prescriptions were given to the patient. He verbalized understanding. IV to the left ac was removed with tip intact.
[2019-11-27] MEDS ORDERED: VALSARTAN 80 MG TAB PO SCH (09:00)
== END 2019-11-26 11:49 | disposition home or self-care (01) | DRG 224 ==
LOC: ER 04:15 → ERHOLD 05:17 → ICU 08:36 → MED/SURG 11-25 15:35
PROC: 4A023N7 Measurement of Cardiac Sampling and Pressure, Left Heart, Percutaneous Approach (ICD-10-PCS; principal; 2019-11-24)
PROC: B2131ZZ Fluoroscopy of Multiple Coronary Artery Bypass Grafts using Low Osmolar Contrast (ICD-10-PCS; 2019-11-24)
PROC: B2181ZZ Fluoroscopy of Left Internal Mammary Bypass Graft using Low Osmolar Contrast (ICD-10-PCS; 2019-11-24)
PROC: B2151ZZ Fluoroscopy of Left Heart using Low Osmolar Contrast (ICD-10-PCS; 2019-11-24)
PROC: B2111ZZ Fluoroscopy of Multiple Coronary Arteries using Low Osmolar Contrast (ICD-10-PCS; 2019-11-24)
PROC: 0JH608Z Insertion of Defibrillator Generator into Chest Subcutaneous Tissue and Fascia, Open Approach (ICD-10-PCS; 2019-11-25)
PROC: 02HK3KZ Insertion of Defibrillator Lead into Right Ventricle, Percutaneous Approach (ICD-10-PCS; 2019-11-25)
PROC: 02H63KZ Insertion of Defibrillator Lead into Right Atrium, Percutaneous Approach (ICD-10-PCS; 2019-11-25)
PROC: 3E0132A Introduction of Anti-Infective Envelope into Subcutaneous Tissue, Percutaneous Approach (ICD-10-PCS; 2019-11-25)
DX: I47.2 Ventricular tachycardia (principal); I21.4 Non-ST elevation (NSTEMI) myocardial infarction; I25.810 Atherosclerosis of coronary artery bypass graft(s) without angina pectoris; I24.9 Acute ischemic heart disease, unspecified; Z87.442 Personal history of urinary calculi; Z95.1 Presence of aortocoronary bypass graft; E78.00 Pure hypercholesterolemia, unspecified; Z88.5 Allergy status to narcotic agent; Z91.048 Other nonmedicinal substance allergy status; E66.01 Morbid (severe) obesity due to excess calories; I25.10 Atherosclerotic heart disease of native coronary artery without angina pectoris; E78.5 Hyperlipidemia, unspecified; N40.0 Benign prostatic hyperplasia without lower urinary tract symptoms; I10 Essential (primary) hypertension; Z79.82 Long term (current) use of aspirin; Z90.49 Acquired absence of other specified parts of digestive tract; Z84.89 Family history of other specified conditions; K21.9 Gastro-esophageal reflux disease without esophagitis; Z11.59 Encounter for screening for other viral diseases; I46.2 Cardiac arrest due to underlying cardiac condition; Z68.31 Body mass index [BMI] 31.0-31.9, adult
CPT/HCPCS: 33249; 36415; 36600; 71045; 71260; 80053; 80061; 82550; 82553; 82805; 83605; 83735; 83880; 84443; 84484; 85025; 87040; 93005; 93306; 93459; 99152; 99153; 99285; C1721; C1763; C1777; C1887; C1898; J0360; J0461; J1580; J1940; J2001; J2250; J2405; J2543; J3010; J3370; J7030; J7040; Q9967; U0002

== ENCOUNTER 2020-12-26 10:31 | Inpatient (IN) | payer MEDICARE ==
[~2020-12-26] VITALS: Ht 177.8 cm; Wt 97.5 kg
[~2020-12-26 10:31] MED LIST changes: +CARVEDILOL12.5 MG PO
[2020-12-26] MEDS ORDERED: HYDROMORPHONE 1MG/1ML INJ IV STA ×2 (10:35→11:29)
[2020-12-26] MEDS ORDERED: NITROGLYCERIN 2% OINT 1 GM PKT ONE (10:44)
[2020-12-26 10:45] LABS: BASOPHILS # (AUTO) 0.1 (0.0-0.1); BASOPHILS % 0.8 % (0.0-1.0); EOSINOPHILS # (AUTO) 0.2 (0.0-0.4); EOSINOPHILS % 3.2 % (0.0-6.0); HEMATOCRIT 47.7 % (38.2-49.6); HEMOGLOBIN 15.7 g/dL (14.0-18.0); LYMPHOCYTES # (AUTO) 1.6 (1.0-3.2); MEAN CORPUSCULAR HEMOGLOBIN 28.6 pg (28-32); MEAN CORPUSCULAR HGB CONC 32.9 g/dL (31-35); MONOCYTES # (AUTO) 0.7 (0.2-0.8); MONOCYTES % 10.2 % (4.4-11.3); NEUTROPHILS % 61.5 % (38.7-80.0); PLATELET COUNT 167 x10e3/uL (140-360); RED BLOOD COUNT 5.48 x10e6/uL (4.3-5.7); RED CELL DISTRIBUTION WIDTH 14.6 % (11.7-14.4)
[2020-12-26] MEDS ORDERED: ONDANSETRON HCL INJ 2MG/ML 2ML 2 MG/ML VIAL IV ONE (10:45)
[2020-12-26] MEDS ORDERED: NITROGLYCERIN 2% OINT 1 GM PKT TOP ONE (10:45)
[2020-12-26 10:57] LABS: INR 0.85; PROTHROMBIN TIME 11.8 seconds (11.9-14.5)
[2020-12-26 10:58] LABS: PARTIAL THROMBOPLASTIN TIME 30.7 seconds (23.8-35.5)
[2020-12-26 11:06] LABS: ALBUMIN 4.2 g/dL (3.5-5.0); ALBUMIN/GLOBULIN RATIO 1.3 (0.8-2.0); ANION GAP 14.9 mmol/L (8-16); CALCIUM 9.1 mg/dL (8.4-10.2); CREATININE, SERUM 1.03 mg/dL (0.72-1.25); POTASSIUM 3.9 mmol/L (3.5-5.1)
[2020-12-26 11:13] LABS: CREATINE KINASE MB 1.5 ng/mL (0-5.0)
[2020-12-26] MEDS ORDERED: HYDROMORPHONE 1MG/1ML INJ IV PRN (11:45)
[2020-12-26] MEDS ORDERED: ENALAPRILAT IV INJ 1.25 MG/ML VIAL IV NR (11:45)
[2020-12-26] MEDS ORDERED: ONDANSETRON HCL INJ 2MG/ML 2ML 2 MG/ML VIAL IV PRN (11:45)
[2020-12-26] MEDS: NITROGLYCERIN 2% OINT 1 GM PKT TOP SCH ×3 (11:49→23:40)
[2020-12-26] MEDS: FAMOTIDINE 20 MG/2 ML VIAL IV SCH ×2 (11:58→23:40)
[2020-12-26 13:05] VITALS: BP 158/83
[2020-12-26 13:30] VITALS: BP 158/83
[2020-12-26] MEDS: SODIUM CHLORIDE 0.9% 1000ML 1,000 ML IV SCH (14:52)
[2020-12-26 15:16] VITALS: BP 115/67
[2020-12-26] MEDS ORDERED: SODIUM CHLORIDE 0.9% 100 ML ONE (15:39)
[2020-12-26] MEDS ORDERED: IOPAMIDOL 370 MG/ML 200 ML INFUS..BTL INJ ONE (15:39)
[2020-12-26 16:35] LABS: CREATINE KINASE MB 14.7 ng/mL (0-5.0)
[2020-12-26] MEDS: CARVEDILOL 12.5 MG TAB PO SCH (17:07)
[2020-12-26 20:08] VITALS: BP 133/80
[2020-12-26] MEDS: VALSARTAN 80 MG TAB PO SCH (20:48)
[2020-12-26 20:49] VITALS: BP 133/80
[2020-12-26] MEDS ORDERED: ATORVASTATIN 20 MG TAB PO SCH (21:00)
[2020-12-26] MEDS: ATORVASTATIN 20 MG TAB PO SCH (21:38)
[2020-12-27] VITALS (14 sets, daily range): BP systolic 113–148; BP diastolic 63–87
[2020-12-27 00:29] LABS: CREATINE KINASE MB 37.6 ng/mL (0-5.0)
[2020-12-27] MEDS ORDERED: CLOPIDOGREL BISULFATE 75 MG TAB PO STA (00:37)
[2020-12-27] MEDS: SODIUM CHLORIDE 0.9% 1000ML 1,000 ML IV SCH (03:19)
[2020-12-27 05:01] LABS: BASOPHILS # (AUTO) 0.1 (0.0-0.1); BASOPHILS % 0.5 % (0.0-1.0); EOSINOPHILS # (AUTO) 0.2 (0.0-0.4); EOSINOPHILS % 2.3 % (0.0-6.0); HEMATOCRIT 40.8 % (38.2-49.6); HEMOGLOBIN 13.4 g/dL (14.0-18.0); LYMPHOCYTES # (AUTO) 0.9 (1.0-3.2); LYMPHOCYTES % 9.9 % (18.0-39.1); MEAN CORPUSCULAR HEMOGLOBIN 28.9 pg (28-32); MEAN CORPUSCULAR HGB CONC 32.8 g/dL (31-35); MEAN CORPUSCULAR VOLUME 87.9 fL (81-99); MONOCYTES # (AUTO) 0.7 (0.2-0.8); NEUTROPHILS # (AUTO) 7.2 (2.1-6.9); NEUTROPHILS % 78.9 % (38.7-80.0); PLATELET COUNT 156 x10e3/uL (140-360); RED BLOOD COUNT 4.64 x10e6/uL (4.3-5.7); RED CELL DISTRIBUTION WIDTH 14.8 % (11.7-14.4)
[2020-12-27] MEDS: NITROGLYCERIN 2% OINT 1 GM PKT TOP SCH (05:15)
[2020-12-27 05:31] LABS: ALBUMIN 3.4 g/dL (3.5-5.0); ALBUMIN/GLOBULIN RATIO 1.3 (0.8-2.0); ANION GAP 12.6 mmol/L (8-16); CHOL/HDL RATIO 3.5 (3.9-4.7); CREATININE, SERUM 0.91 mg/dL (0.72-1.25); POTASSIUM 4.6 mmol/L (3.5-5.1)
[2020-12-27] MEDS: CARVEDILOL 12.5 MG TAB PO SCH ×2 (09:00→16:49)
[2020-12-27] MEDS: CEPHALEXIN MONOHYDRATE 250 MG CAP PO SCH (09:00)
[2020-12-27] MEDS: VALSARTAN 80 MG TAB PO SCH (09:00)
[2020-12-27] MEDS ORDERED: ASPIRIN 81 MG CHEW TAB PO ONE (09:15)
[2020-12-27] MEDS: ASPIRIN 81 MG ENTERIC COATED PO SCH (09:29)
[2020-12-27 09:49] LABS: CREATINE KINASE MB 28.4 ng/mL (0-5.0)
[2020-12-27] MEDS ORDERED: FUROSEMIDE INJ 10 MG/ML 2 ML VIAL IV ONE (10:50)
[2020-12-27] MEDS ORDERED: ALPRAZOLAM 0.25 MG TAB PO ONE (11:00)
[2020-12-27] MEDS: FAMOTIDINE 20 MG/2 ML VIAL IV SCH ×2 (11:45→23:43)
[2020-12-27] MEDS ORDERED: ONDANSETRON HCL 4 MG ORAL DISINTEGRATING TAB PO PRN (11:45)
[2020-12-27] MEDS ORDERED: LIDOCAINE HCL 2% LOCAL 20 ML VIAL ONE (12:02)
[2020-12-27] MEDS ORDERED: SODIUM CHLORIDE 0.9% 1000ML 1,000 ML ONE (12:02)
[2020-12-27] MEDS ORDERED: FENTANYL CITRATE/PF 100MCG/2 ML INJ ONE (12:02)
[2020-12-27] MEDS ORDERED: MIDAZOLAM HCL 2 MG/2 ML VIAL ONE (12:02)
[2020-12-27] MEDS ORDERED: HEPARIN SOD/SOD CHLORIDE 2,000 ML ONE (12:02)
[2020-12-27] MEDS ORDERED: IOPAMIDOL 370 MG/ML 200 ML INFUS..BTL INJ ONE ×2 (12:02→12:32)
[2020-12-27] MEDS: ATORVASTATIN 20 MG TAB PO SCH (20:19)
[2020-12-28] VITALS: BP 124/76
[2020-12-28 04:00] VITALS: BP 111/64
[2020-12-28 04:51] LABS: BASOPHILS % 0.5 % (0.0-1.0); EOSINOPHILS # (AUTO) 0.2 (0.0-0.4); HEMATOCRIT 41.6 % (38.2-49.6); HEMOGLOBIN 13.4 g/dL (14.0-18.0); LYMPHOCYTES # (AUTO) 1.1 (1.0-3.2); LYMPHOCYTES % 16.6 % (18.0-39.1); MEAN CORPUSCULAR HEMOGLOBIN 28.2 pg (28-32); MEAN CORPUSCULAR HGB CONC 32.2 g/dL (31-35); MEAN CORPUSCULAR VOLUME 87.4 fL (81-99); MONOCYTES # (AUTO) 0.7 (0.2-0.8); MONOCYTES % 10.7 % (4.4-11.3); NEUTROPHILS # (AUTO) 4.4 (2.1-6.9); NEUTROPHILS % 68.9 % (38.7-80.0); PLATELET COUNT 148 x10e3/uL (140-360); RED BLOOD COUNT 4.76 x10e6/uL (4.3-5.7); RED CELL DISTRIBUTION WIDTH 14.8 % (11.7-14.4)
[2020-12-28 05:23] LABS: ANION GAP 10.2 mmol/L (8-16); CALCIUM 8.1 mg/dL (8.4-10.2); CREATININE, SERUM 0.83 mg/dL (0.72-1.25); POTASSIUM 4.2 mmol/L (3.5-5.1)
[2020-12-28 07:57] VITALS: BP 127/77
[2020-12-28 08:16] VITALS: BP 127/77
[2020-12-28] MEDS ORDERED: CLOPIDOGREL BISULFATE 75 MG TAB PO SCH (09:00)
[2020-12-28] MEDS ORDERED: VALSARTAN 80 MG TAB PO SCH ×2 (09:00)
[2020-12-28] MEDS: CARVEDILOL 12.5 MG TAB PO SCH (09:45)
[2020-12-28] MEDS: ASPIRIN 81 MG ENTERIC COATED PO SCH (09:45)
[2020-12-28] MEDS: CEPHALEXIN MONOHYDRATE 250 MG CAP PO SCH (09:49)
[2020-12-28] MEDS ORDERED: PLAVIX75 MG PO (10:48)
[2020-12-28] MEDS ORDERED: DIOVAN80 MG PO (10:48)
[2020-12-28] MEDS ORDERED: COREG12.5 MG PO (10:48)
[2020-12-28] MEDS ORDERED: LIPITOR20 MG PO (10:49)
[2020-12-28] MEDS ORDERED: ATORVASTATIN 40 MG TAB PO SCH (21:00)
== END 2020-12-28 11:32 | disposition home or self-care (01) | DRG 281 ==
LOC: ER 11:00 → ERHOLD 12:06 → MED/SURG 13:52 → OBSVTOIN 12-27 14:44
PROVIDERS: ADMIT Internal Medicine; ATTEND Internal Medicine
PROC: 4A023N7 Measurement of Cardiac Sampling and Pressure, Left Heart, Percutaneous Approach (ICD-10-PCS; principal; 2020-12-27)
PROC: B2131ZZ Fluoroscopy of Multiple Coronary Artery Bypass Grafts using Low Osmolar Contrast (ICD-10-PCS; 2020-12-27)
PROC: B2111ZZ Fluoroscopy of Multiple Coronary Arteries using Low Osmolar Contrast (ICD-10-PCS; 2020-12-27)
PROC: B2151ZZ Fluoroscopy of Left Heart using Low Osmolar Contrast (ICD-10-PCS; 2020-12-27)
DX: I21.4 Non-ST elevation (NSTEMI) myocardial infarction (principal); I25.810 Atherosclerosis of coronary artery bypass graft(s) without angina pectoris; I50.22 Chronic systolic (congestive) heart failure; I25.82 Chronic total occlusion of coronary artery; Z95.810 Presence of automatic (implantable) cardiac defibrillator; Z95.1 Presence of aortocoronary bypass graft; I25.10 Atherosclerotic heart disease of native coronary artery without angina pectoris; Z87.442 Personal history of urinary calculi; E78.5 Hyperlipidemia, unspecified; Z88.5 Allergy status to narcotic agent; Z91.048 Other nonmedicinal substance allergy status; I16.0 Hypertensive urgency; Z79.82 Long term (current) use of aspirin; T81.49XD Infection following a procedure, other surgical site, subsequent encounter; E66.9 Obesity, unspecified; I11.0 Hypertensive heart disease with heart failure; Z68.30 Body mass index [BMI] 30.0-30.9, adult
CPT/HCPCS: 36415; 71045; 71275; 80048; 80053; 80061; 82550; 82553; 83735; 83880; 84484; 85025; 85610; 85730; 93005; 93459; 96361; 99152; 99153; 99251; 99284; C1887; G0378; J1170; J1940; J2001; J2250; J2405; J3010; J7030; J7050; Q9967; U0002

== ENCOUNTER → 2022-10-31 | Outpatient (CLI) | payer MEDICARE ==
[~2022-10-31] MED LIST changes: +COREG12.5 MG PO; +IOPAMIDOL 370 MG/ML 100 ML INFUS..BTL INJ ONE; +LIPITOR20 MG PO; +PLAVIX75 MG PO
[2022-10-31 07:57] LABS: CREATININE, SERUM 1.19 mg/dL (0.72-1.25)
== END ==
LOC: CT 07:00
PROVIDERS: ATTEND Internal Medicine Infectious Disease
DX: T84.69XA Infection and inflammatory reaction due to internal fixation device of other site, initial encounter (principal)
CPT/HCPCS: 36415; 71260; 82565; 84520; Q9967

== ENCOUNTER 2022-11-24 09:43 | Emergency (ER) | payer MEDICARE, OTHER ==
[~2022-11-24] VITALS: Ht 177.8 cm; Wt 102.2 kg
[~2022-11-24 09:43] MED LIST changes: -IOPAMIDOL 370 MG/ML 100 ML INFUS..BTL INJ ONE
[2022-11-24] MEDS ORDERED: KEFLEX125 MG/5 M PO (10:03)
[2022-11-24] MEDS ORDERED: NEOMYCIN/POLYMYX/BACITR OINT 0.9 GM PKT ONE (10:20)
[2022-11-24 10:52] VITALS: O2SAT 99
== END 2022-11-24 10:52 | disposition home or self-care (01) ==
LOC: FSED 09:46
DX: S50.812A Abrasion of left forearm, initial encounter (principal); G89.11 Acute pain due to trauma; I10 Essential (primary) hypertension; I25.10 Atherosclerotic heart disease of native coronary artery without angina pectoris; E78.5 Hyperlipidemia, unspecified; Z95.1 Presence of aortocoronary bypass graft; Z95.810 Presence of automatic (implantable) cardiac defibrillator; Z79.02 Long term (current) use of antithrombotics/antiplatelets; V47.5XXA Car driver injured in collision with fixed or stationary object in traffic accident, initial encounter; W22.12XA Striking against or struck by front passenger side automobile airbag, initial encounter; Y92.414 Local residential or business street as the place of occurrence of the external cause
CPT/HCPCS: 99283

== ENCOUNTER 2023-09-12 12:12 | Emergency (ER) | payer MEDICARE ==
[~2023-09-12] VITALS: Ht 177.8 cm; Wt 100.8 kg
[~2023-09-12 12:12] MED LIST changes: +KEFLEX125 MG/5 M PO
[2023-09-12 12:15] VITALS: O2SAT 97
[2023-09-12] MEDS ORDERED: METOPROLOL TART50 MG PO (13:01)
[2023-09-12] MEDS ORDERED: CEFDINIR300 MG PO (14:59)
[2023-09-12] MEDS ORDERED: PROVENTIL HFA6.7 GM INH (15:00)
== END 2023-09-12 15:12 | disposition home or self-care (01) ==
LOC: FSED 12:18
DX: R05.9 Cough, unspecified (principal); J20.9 Acute bronchitis, unspecified; I10 Essential (primary) hypertension; E78.5 Hyperlipidemia, unspecified; Z22.322 Carrier or suspected carrier of Methicillin resistant Staphylococcus aureus; Z11.52 Encounter for screening for COVID-19; R94.31 Abnormal electrocardiogram [ECG] [EKG]; Z86.79 Personal history of other diseases of the circulatory system
CPT/HCPCS: 0223U; 71046; 80048; 80076; 81003; 82553; 83880; 84484; 85025; 93005; 99284

== ENCOUNTER 2023-12-30 15:33 | Inpatient (IN) | payer MEDICARE ==
[~2023-12-30] VITALS: Ht 177.8 cm; Wt 95.3 kg
[~2023-12-30 15:33] MED LIST changes: +CEFDINIR300 MG PO; +LEVALBUTEROL TA15 GM NEB; +METOPROLOL TART50 MG PO; +PREDNISONE20 MG PO; +PROVENTIL HFA6.7 GM INH
[2023-12-30 16:02] LABS: BASOPHILS % 0.3 % (0.0-1.0); EOSINOPHILS # (AUTO) 0.1 (0.0-0.4); HEMATOCRIT 45.3 % (38.2-49.6); HEMOGLOBIN 14.9 g/dL (14.0-18.0); LYMPHOCYTES # (AUTO) 0.8 (1.0-3.2); LYMPHOCYTES % 6.6 % (18.0-39.1); MEAN CORPUSCULAR HGB CONC 32.9 g/dL (31-35); MEAN CORPUSCULAR VOLUME 88.3 fL (81-99); MONOCYTES # (AUTO) 0.7 (0.2-0.8); NEUTROPHILS # (AUTO) 10.1 (2.1-6.9); NEUTROPHILS % 85.9 % (38.7-80.0); PLATELET COUNT 161 x10e3/uL (140-360); RED BLOOD COUNT 5.13 x10e6/uL (4.3-5.7); RED CELL DISTRIBUTION WIDTH 15.3 % (11.7-14.4); WHITE BLOOD COUNT 11.71 x10e3/uL (4.8-10.8)
[2023-12-30 16:11] LABS: INR 0.91; PROTHROMBIN TIME 12.7 seconds (11.9-14.5)
[2023-12-30 16:20] LABS: ALBUMIN 4.5 g/dL (3.5-5.0); ALBUMIN/GLOBULIN RATIO 1.7 (0.8-2.0); BILIRUBIN,TOTAL 0.8 mg/dL (0.2-1.2); CALCIUM 9.2 mg/dL (8.4-10.2); CREATININE, SERUM 1.3 mg/dL (0.72-1.25); TOTAL PROTEIN 7.1 g/dL (6.5-8.1)
[2023-12-30 16:26] LABS: TROPONIN I 0.003 ng/mL (0-0.300)
[2023-12-30 16:27] LABS: B-TYPE NATRIURETIC PEPTIDE2 66.7 pg/mL (0-100)
[2023-12-30] MEDS: ACETAMINOPHEN 1000 MG/100 ML IV STA ×2 (16:30→19:47)
[2023-12-30] MEDS: MEROPENEM 1 GM in SODIUM CHLORIDE 0.9% 100 ML IV ONE (16:30)
[2023-12-30] MEDS: SODIUM CHLORIDE 0.9% 1000ML 1,000 ML IV SCH ×3 (16:31→23:15)
[2023-12-30 17:31] LABS: BILIRUBIN,URINE NEGATIVE (NEGATIVE); CLARITY,URINE SL CLOUDY (CLEAR); COLOR,URINE YELLOW (YELLOW); GLUCOSE, URINE NEGATIVE (NEGATIVE); KETONES,URINE NEGATIVE (NEGATIVE); LEUKOCYTE ESTERASE ,URINE SMALL (NEGATIVE); NITRITE,URINE NEGATIVE (NEGATIVE); PH,URINE 5.5 (5 - 7); PROTEIN,URINE DIPSTICK 2+ (NEGATIVE); URINE UROBILINOGEN 0.2 mg/dL (0.2 - 1)
[2023-12-30 17:41] LABS: BACTERIA,URINE MANY /HPF; EPITHELIAL CELLS,URINE FEW /LPF; MUCUS,URINE MODERATE (RARE); RBC,URINE >50 /HPF (0-5); WBC,URINE (MAN) >50 /HPF (0-5)
[2023-12-30] MEDS: VANCOMYCIN 1.25GM/250ML PREMIX 250 ML IV ONE (17:41)
[2023-12-30 18:06] VITALS: TEMP 99.4
[2023-12-30] MEDS ORDERED: ONDANSETRON HCL INJ 2MG/ML 2ML 2 MG/ML VIAL IV PRN (18:30)
[2023-12-30 18:44] VITALS: PULSE 71; RESP 19
[2023-12-30 20:18] VITALS: BP 146/63; PULSE 70; RESP 20; TEMP 97.7; O2SAT 100
[2023-12-30] MEDS ORDERED: HYDRALAZINE HCL 20 MG/ML VIAL IV PRN (20:45)
[2023-12-30] MEDS ORDERED: POLYETHYLENE GLYCOL 3350 17 GM PACK PO PRN (20:45)
[2023-12-30 23:10] VITALS: PULSE 82; RESP 20; O2SAT 97
[2023-12-30] MEDS: MEROPENEM 1 GM in SODIUM CHLORIDE 0.9% 100 ML IV SCH (23:16)
[2023-12-31] VITALS (12 sets, daily range): BP systolic 128–158; BP diastolic 50–76; PULSE 64–80; RESP 18–21; TEMP 97.3–100.2; O2SAT 95–100
[2023-12-31] MEDS: ACETAMINOPHEN 325 MG TAB PO PRN (03:59)
[2023-12-31 05:36] LABS: BASOPHILS # (AUTO) 0.1 (0.0-0.1); BASOPHILS % 0.3 % (0.0-1.0); EOSINOPHILS % 0.1 % (0.0-6.0); HEMATOCRIT 37.8 % (38.2-49.6); HEMOGLOBIN 12.6 g/dL (14.0-18.0); LYMPHOCYTES # (AUTO) 0.7 (1.0-3.2); LYMPHOCYTES % 3.9 % (18.0-39.1); MEAN CORPUSCULAR HEMOGLOBIN 29.2 pg (28-32); MEAN CORPUSCULAR HGB CONC 33.3 g/dL (31-35); MEAN CORPUSCULAR VOLUME 87.7 fL (81-99); MONOCYTES # (AUTO) 1.3 (0.2-0.8); MONOCYTES % 7.7 % (4.4-11.3); NEUTROPHILS # (AUTO) 14.9 (2.1-6.9); NEUTROPHILS % 86.3 % (38.7-80.0); PLATELET COUNT 123 x10e3/uL (140-360); RED BLOOD COUNT 4.31 x10e6/uL (4.3-5.7); RED CELL DISTRIBUTION WIDTH 15.4 % (11.7-14.4); WHITE BLOOD COUNT 17.31 x10e3/uL (4.8-10.8)
[2023-12-31 06:02] LABS: CHOL/HDL RATIO 2.8 (3.9-4.7); PHOSPHORUS 3.6 MG/DL (2.3-4.7)
[2023-12-31 06:04] LABS: ALBUMIN 3.6 g/dL (3.5-5.0); ALBUMIN/GLOBULIN RATIO 1.9 (0.8-2.0); ANION GAP 13.9 mmol/L (8-16); BILIRUBIN,TOTAL 1.6 mg/dL (0.2-1.2); CALCIUM 8.1 mg/dL (8.4-10.2); CREATININE, SERUM 1.24 mg/dL (0.72-1.25); POTASSIUM 3.9 mmol/L (3.5-5.1); TOTAL PROTEIN 5.5 g/dL (6.5-8.1)
[2023-12-31] MEDS: Vancomycin IV 1 GM in SODIUM CHLORIDE 0.9% 250ML 250 ML IV SCH (06:17)
[2023-12-31 06:20] LABS: FREE T4 (FREE THYROXINE) 0.95 ng/dL (0.8-1.8); THYROID STIMULATING HORMONE 0.794 uIU/mL (0.350-4.940)
[2023-12-31 06:40] LABS: TROPONIN I 0.008 ng/mL (0-0.300)
[2023-12-31] MEDS: FAMOTIDINE 20 MG TAB PO SCH (08:54)
[2023-12-31] MEDS: DOCUSATE SODIUM 100 MG CAP PO SCH (08:55)
[2023-12-31 14:52] LABS: TROPONIN I 0.004 ng/mL (0-0.300)
[2023-12-31] MEDS ORDERED: MEROPENEM 1 GM VIAL ONE (20:24)
[2024-01-01] VITALS (12 sets, daily range): BP systolic 114–155; BP diastolic 54–77; PULSE 50–78; RESP 17–21; TEMP 97.6–99.5; O2SAT 94–100
[2024-01-01] MEDS ORDERED: ALBUTEROL 90 MCG/ACT INHALER INH PRN (08:45)
[2024-01-01] MEDS: PREDNISONE 20 MG TAB PO SCH (09:17)
[2024-01-01] MEDS: CLOPIDOGREL BISULFATE 75 MG TAB PO SCH (09:18)
[2024-01-01] MEDS: CARVEDILOL 12.5 MG TAB PO SCH (09:18)
[2024-01-01] MEDS: METOPROLOL TARTRATE 50 MG TAB PO SCH (09:18)
[2024-01-01] MEDS: LEVALBUTEROL HCL SOLN NEBU 0.63 MG/3 ML NEB IH SCH (10:50)
[2024-01-01] MEDS ORDERED: ONDANSETRON HCL 4 MG ORAL DISINTEGRATING TAB PO PRN (14:30)
[2024-01-01] MEDS: ATORVASTATIN 40 MG TAB PO SCH (22:11)
[2024-01-01] MEDS: VALSARTAN 80 MG TAB PO SCH (22:12)
[2024-01-02] VITALS (7 sets, daily range): BP systolic 133–156; BP diastolic 66–81; PULSE 59–72; RESP 17–20; TEMP 97.7–98.5; O2SAT 96–100
[2024-01-02 05:05] LABS: BASOPHILS % 0.2 % (0.0-1.0); EOSINOPHILS # (AUTO) 0.1 (0.0-0.4); EOSINOPHILS % 0.8 % (0.0-6.0); HEMATOCRIT 35.9 % (38.2-49.6); HEMOGLOBIN 11.9 g/dL (14.0-18.0); LYMPHOCYTES # (AUTO) 0.7 (1.0-3.2); LYMPHOCYTES % 7.5 % (18.0-39.1); MEAN CORPUSCULAR HGB CONC 33.1 g/dL (31-35); MEAN CORPUSCULAR VOLUME 87.3 fL (81-99); MONOCYTES # (AUTO) 0.4 (0.2-0.8); MONOCYTES % 4.9 % (4.4-11.3); NEUTROPHILS # (AUTO) 7.7 (2.1-6.9); NEUTROPHILS % 85.7 % (38.7-80.0); PLATELET COUNT 108 x10e3/uL (140-360); RED BLOOD COUNT 4.11 x10e6/uL (4.3-5.7); RED CELL DISTRIBUTION WIDTH 15.5 % (11.7-14.4); WHITE BLOOD COUNT 9.01 x10e3/uL (4.8-10.8)
[2024-01-02 05:36] LABS: ALBUMIN 3.4 g/dL (3.5-5.0); ALBUMIN/GLOBULIN RATIO 1.5 (0.8-2.0); ANION GAP 10.9 mmol/L (8-16); BILIRUBIN,TOTAL 0.7 mg/dL (0.2-1.2); CREATININE, SERUM 0.77 mg/dL (0.72-1.25); POTASSIUM 3.9 mmol/L (3.5-5.1); TOTAL PROTEIN 5.6 g/dL (6.5-8.1)
[2024-01-02] MEDS ORDERED: CIPRO500 MG PO (17:07)
== END 2024-01-02 17:40 | disposition home or self-care (01) | DRG 690 ==
LOC: ER 15:40 → ERHOLD 18:32 → MED/SURG2 20:33
PROVIDERS: ADMIT Internal Medicine; ATTEND Internal Medicine
DX: N30.20 Other chronic cystitis without hematuria (principal); T81.41XA Infection following a procedure, superficial incisional surgical site, initial encounter; Z16.39 Resistance to other specified antimicrobial drug; B96.89 Other specified bacterial agents as the cause of diseases classified elsewhere; B96.5 Pseudomonas (aeruginosa) (mallei) (pseudomallei) as the cause of diseases classified elsewhere; I11.9 Hypertensive heart disease without heart failure; I25.10 Atherosclerotic heart disease of native coronary artery without angina pectoris; Z95.810 Presence of automatic (implantable) cardiac defibrillator; E78.5 Hyperlipidemia, unspecified; K57.30 Diverticulosis of large intestine without perforation or abscess without bleeding; N20.0 Calculus of kidney; Z11.52 Encounter for screening for COVID-19; Z66 Do not resuscitate; Z79.899 Other long term (current) drug therapy; Z95.1 Presence of aortocoronary bypass graft; Z79.2 Long term (current) use of antibiotics; Y83.2 Surgical operation with anastomosis, bypass or graft as the cause of abnormal reaction of the patient, or of later complication, without mention of misadventure at the time of the procedure; Z86.14 Personal history of Methicillin resistant Staphylococcus aureus infection
CPT/HCPCS: 36415; 71260; 74177; 80053; 80061; 80202; 81001; 82550; 83036; 83605; 83735; 83880; 84100; 84439; 84443; 84484; 85025; 85610; 85730; 87040; 87071; 87086; 87186; 87205; 93005; 94640; 94799; 99252; 99284; J2185; J7030; J7050; J7512; U0002

== ENCOUNTER 2024-02-05 10:37 | Inpatient (IN) | payer MEDICARE ==
[~2024-02-05] VITALS: Ht 177.8 cm; Wt 99.8 kg
[2024-02-05 11:57] LABS: BASOPHILS % 0.2 % (0.0-1.0); EOSINOPHILS % 0.1 % (0.0-6.0); HEMOGLOBIN 14.4 g/dL (14.0-18.0); LYMPHOCYTES # (AUTO) 0.7 (1.0-3.2); LYMPHOCYTES % 4.7 % (18.0-39.1); MEAN CORPUSCULAR HEMOGLOBIN 28.5 pg (28-32); MEAN CORPUSCULAR HGB CONC 32.7 g/dL (31-35); MEAN CORPUSCULAR VOLUME 87.1 fL (81-99); MONOCYTES # (AUTO) 0.9 (0.2-0.8); MONOCYTES % 6.4 % (4.4-11.3); NEUTROPHILS # (AUTO) 12.3 (2.1-6.9); NEUTROPHILS % 88.1 % (38.7-80.0); PLATELET COUNT 134 x10e3/uL (140-360); RED BLOOD COUNT 5.05 x10e6/uL (4.3-5.7); RED CELL DISTRIBUTION WIDTH 14.9 % (11.7-14.4); WHITE BLOOD COUNT 13.96 x10e3/uL (4.8-10.8)
[2024-02-05] MEDS ORDERED: SODIUM CHLORIDE FLUSH 10 ML SYR IV PRN (12:00)
[2024-02-05 12:10] LABS: ALBUMIN 3.8 g/dL (3.5-5.0); ALBUMIN/GLOBULIN RATIO 1.1 (0.8-2.0); BILIRUBIN,TOTAL 1.5 mg/dL (0.2-1.2); CALCIUM 9.5 mg/dL (8.4-10.2); CREATININE, SERUM 1.17 mg/dL (0.72-1.25); TOTAL PROTEIN 7.4 g/dL (6.5-8.1)
[2024-02-05 12:56] LABS: BILIRUBIN,URINE SMALL (NEGATIVE); CLARITY,URINE SL CLOUDY (CLEAR); COLOR,URINE BROWN (YELLOW); GLUCOSE, URINE NEGATIVE (NEGATIVE); KETONES,URINE TRACE (NEGATIVE); LEUKOCYTE ESTERASE ,URINE SMALL (NEGATIVE); NITRITE,URINE POSITIVE (NEGATIVE); PH,URINE 6 (5 - 7); PROTEIN,URINE DIPSTICK 1+ (NEGATIVE); URINE UROBILINOGEN 1 mg/dL (0.2 - 1)
[2024-02-05 13:00] LABS: BACTERIA,URINE MODERATE /HPF; EPITHELIAL CELLS,URINE RARE /LPF; WBC,URINE (MAN) >50 /HPF (0-5)
[2024-02-05] MEDS: SODIUM CHLORIDE 0.9% 1000ML 1,000 ML IV STA (13:37)
[2024-02-05] MEDS: ONDANSETRON HCL INJ 2MG/ML 2ML 2 MG/ML VIAL IV STA (13:39)
[2024-02-05] MEDS ORDERED: Morphine 4mg INJECTION 4 MG/ML INJ IV ONE (14:45)
[2024-02-05] MEDS: VANCOMYCIN 1.5 GM/300 ML (PEG) 300 ML IV ONE (15:56)
[2024-02-05] MEDS: HYDROCODONE/APAP 7.5MG-325MG 1 EA TAB PO PRN (17:09)
[2024-02-05] MEDS ORDERED: HYDRALAZINE HCL 20 MG/ML VIAL IV PRN (17:15)
[2024-02-05] MEDS ORDERED: ONDANSETRON HCL INJ 2MG/ML 2ML 2 MG/ML VIAL IV PRN (17:15)
[2024-02-05] MEDS ORDERED: POLYETHYLENE GLYCOL 3350 17 GM PACK PO PRN (17:15)
[2024-02-05] MEDS ORDERED: DIPHENHYDRAMINE HCL INJ 50 MG/ML VIAL ONE (17:34)
[2024-02-05] MEDS ORDERED: METHYLPREDNISOLONE SOD SUCC 125 MG/2ML VIAL ONE (17:34)
[2024-02-05] MEDS ORDERED: FAMOTIDINE 20 MG/2 ML VIAL IV ONE (17:34)
[2024-02-05] MEDS: DIPHENHYDRAMINE HCL INJ 50 MG/ML VIAL IV STA (18:09)
[2024-02-05] MEDS: FAMOTIDINE 20 MG/2 ML VIAL IV STA (18:09)
[2024-02-05] MEDS: METHYLPREDNISOLONE SOD SUCC 125 MG/2ML VIAL IV STA (18:10)
[2024-02-05 18:20] LABS: ABG HCO3 17 mmol/L (22-26); ABG PCO2 24 mmHg (35-45); ABG PH 7.46 (7.35-7.45); ABG PO2 76 mmHg (80-105); ABG TCO2 17
[2024-02-05] MEDS: SODIUM CHLORIDE 0.9% 1000ML 1,000 ML IV SCH (19:39)
[2024-02-05] MEDS: ACETAMINOPHEN 325 MG TAB PO PRN (19:39)
[2024-02-05 20:23] VITALS: PULSE 82; RESP 24; TEMP 99.9
[2024-02-05 22:00] VITALS: BP 135/60; PULSE 88; RESP 18; TEMP 98; O2SAT 95
[2024-02-06] VITALS (7 sets, daily range): BP systolic 123–156; BP diastolic 62–91; PULSE 60–69; RESP 16–20; TEMP 97–97.9; O2SAT 98–100
[2024-02-06] MEDS ORDERED: CLOPIDOGREL75 MG PO (04:33)
[2024-02-06] MEDS ORDERED: ATORVASTATIN CA40 MG PO (04:33)
[2024-02-06] MEDS ORDERED: METOPROLOL SUCC50 MG PO (04:33)
[2024-02-06] MEDS ORDERED: VALSARTAN80 MG PO (04:33)
[2024-02-06 06:17] LABS: BASOPHILS % 0.1 % (0.0-1.0); HEMATOCRIT 41.4 % (38.2-49.6); HEMOGLOBIN 13.6 g/dL (14.0-18.0); LYMPHOCYTES # (AUTO) 0.2 (1.0-3.2); LYMPHOCYTES % 2.3 % (18.0-39.1); MEAN CORPUSCULAR HEMOGLOBIN 28.6 pg (28-32); MEAN CORPUSCULAR HGB CONC 32.9 g/dL (31-35); MEAN CORPUSCULAR VOLUME 87.2 fL (81-99); MONOCYTES # (AUTO) 0.2 (0.2-0.8); MONOCYTES % 1.7 % (4.4-11.3); NEUTROPHILS # (AUTO) 9.7 (2.1-6.9); NEUTROPHILS % 95.5 % (38.7-80.0); PLATELET COUNT 143 x10e3/uL (140-360); RED BLOOD COUNT 4.75 x10e6/uL (4.3-5.7); RED CELL DISTRIBUTION WIDTH 14.6 % (11.7-14.4); WHITE BLOOD COUNT 10.12 x10e3/uL (4.8-10.8)
[2024-02-06 06:39] LABS: ALBUMIN 3.2 g/dL (3.5-5.0); ANION GAP 12.4 mmol/L (8-16); CALCIUM 9.1 mg/dL (8.4-10.2); CREATININE, SERUM 0.92 mg/dL (0.72-1.25); POTASSIUM 4.4 mmol/L (3.5-5.1); TOTAL PROTEIN 6.5 g/dL (6.5-8.1)
[2024-02-06] MEDS: DOCUSATE SODIUM 100 MG CAP PO SCH (08:21)
[2024-02-07] VITALS (8 sets, daily range): BP systolic 115–160; BP diastolic 63–84; PULSE 60–75; RESP 17–20; TEMP 97.3–97.9; O2SAT 100
[2024-02-08 04:00] VITALS: BP 150/87; PULSE 62; RESP 20; TEMP 98.3; O2SAT 100
[2024-02-08 06:01] LABS: BASOPHILS % 0.3 % (0.0-1.0); EOSINOPHILS # (AUTO) 0.1 (0.0-0.4); HEMATOCRIT 36.8 % (38.2-49.6); HEMOGLOBIN 11.8 g/dL (14.0-18.0); LYMPHOCYTES % 16.2 % (18.0-39.1); MEAN CORPUSCULAR HEMOGLOBIN 28.4 pg (28-32); MEAN CORPUSCULAR HGB CONC 32.1 g/dL (31-35); MEAN CORPUSCULAR VOLUME 88.7 fL (81-99); MONOCYTES # (AUTO) 0.6 (0.2-0.8); MONOCYTES % 10.1 % (4.4-11.3); NEUTROPHILS # (AUTO) 4.4 (2.1-6.9); NEUTROPHILS % 71.2 % (38.7-80.0); PLATELET COUNT 161 x10e3/uL (140-360); RED BLOOD COUNT 4.15 x10e6/uL (4.3-5.7); RED CELL DISTRIBUTION WIDTH 15.3 % (11.7-14.4); WHITE BLOOD COUNT 6.12 x10e3/uL (4.8-10.8)
[2024-02-08 06:17] LABS: CALCIUM 8.4 mg/dL (8.4-10.2); CREATININE, SERUM 0.97 mg/dL (0.72-1.25)
[2024-02-08 07:45] VITALS: BP 146/71; PULSE 70; RESP 18; TEMP 98.1; O2SAT 100
[2024-02-08 08:21] VITALS: BP 146/71; PULSE 70; RESP 18; TEMP 98.1; O2SAT 99
[2024-02-08] MEDS ORDERED: KETOROLAC TROME10 MG PO (11:27)
[2024-02-08] MEDS ORDERED: CIPRO250 MG PO (11:27)
[2024-02-08 11:51] VITALS: BP 149/76; PULSE 68; RESP 18; TEMP 98.1; O2SAT 99
== END 2024-02-08 12:30 | disposition home or self-care (01) | DRG 872 ==
LOC: ER 10:50 → ERHOLD 15:27 → MED/SURG3 20:52
PROVIDERS: ADMIT Internal Medicine; ATTEND Internal Medicine
PROC: 4A033R1 Measurement of Arterial Saturation, Peripheral, Percutaneous Approach (ICD-10-PCS; 2024-02-05)
PROC: 3E0333Z Introduction of Anti-inflammatory into Peripheral Vein, Percutaneous Approach (ICD-10-PCS; principal; 2024-02-06)
DX: A41.9 Sepsis, unspecified organism (principal); N30.00 Acute cystitis without hematuria; I10 Essential (primary) hypertension; N45.3 Epididymo-orchitis; I25.10 Atherosclerotic heart disease of native coronary artery without angina pectoris; N20.0 Calculus of kidney; B96.5 Pseudomonas (aeruginosa) (mallei) (pseudomallei) as the cause of diseases classified elsewhere; W55.89XA Other contact with other mammals, initial encounter; Z79.02 Long term (current) use of antithrombotics/antiplatelets; Z79.2 Long term (current) use of antibiotics; Z95.810 Presence of automatic (implantable) cardiac defibrillator; Z95.1 Presence of aortocoronary bypass graft; Z90.49 Acquired absence of other specified parts of digestive tract; Z86.16 Personal history of COVID-19; F17.210 Nicotine dependence, cigarettes, uncomplicated; Z91.048 Other nonmedicinal substance allergy status; Z88.5 Allergy status to narcotic agent
CPT/HCPCS: 36415; 36600; 71045; 74176; 76870; 80048; 80053; 81001; 82805; 83735; 84100; 85025; 87040; 87086; 87186; 93976; 99285; J0696; J1200; J2405; J2543; J2919; J7030

== ENCOUNTER → 2024-07-04 | Outpatient (REF) | payer MEDICARE ==
[~2024-07-04] MED LIST changes: +CIPRO250 MG PO; +CLOPIDOGREL75 MG PO; +IOPAMIDOL 370 MG/ML 100 ML INFUS..BTL INJ ONE; +KETOROLAC TROME10 MG PO; +METOPROLOL SUCC50 MG PO; +VALSARTAN80 MG PO
[2024-07-04 10:11] LABS: CREATININE, SERUM 1.12 mg/dL (0.72-1.25)
== END ==
LOC: CT 08:48
PROVIDERS: ATTEND Internal Medicine Infectious Disease
DX: S21.109D Unspecified open wound of unspecified front wall of thorax without penetration into thoracic cavity, subsequent encounter (principal)
CPT/HCPCS: 36415; 71260; 82565; 84520; Q9967

== ENCOUNTER 2025-03-07 15:37 | Emergency (ER) | payer MEDICARE ==
[~2025-03-07] VITALS: Ht 177.8 cm; Wt 99.8 kg
[~2025-03-07 15:37] MED LIST changes: -IOPAMIDOL 370 MG/ML 100 ML INFUS..BTL INJ ONE
[2025-03-07] MEDS: SODIUM CHLORIDE 0.9% 1000ML 1,000 ML IV STA (16:30)
[2025-03-07 16:53] LABS: BASOPHILS % 0.3 % (0.0-1.0); EOSINOPHILS % 0.5 % (0.0-6.0); LYMPHOCYTES % 6.5 % (18.0-39.1); MONOCYTES % 8.8 % (4.4-11.3); NEUTROPHILS % 83.4 % (38.7-80.0); RED CELL DISTRIBUTION WIDTH 16.3 % (11.7-14.4)
[2025-03-07 17:00] LABS: LEUKOCYTE ESTERASE ,URINE LARGE (NEGATIVE); PROTEIN,URINE DIPSTICK 2+ (NEGATIVE); URINE UROBILINOGEN 1 mg/dL (0.2 - 1); WBC,URINE (MAN) >50 /HPF (0-5)
[2025-03-07 17:01] LABS: EPITHELIAL CELLS,URINE FEW /LPF
[2025-03-07 17:03] LABS: INR 1.04
[2025-03-07 17:13] LABS: EST GLOMERULAR FILTRATION RATE 57.0 ML/MIN (>=60)
[2025-03-07] MEDS ORDERED: Vancomycin IV 1 GM VIAL ONE (18:08)
[2025-03-07] MEDS ORDERED: SODIUM CHLORIDE 0.9% 100 ML ONE (18:08)
[2025-03-07] MEDS: CEFEPIME 2 GM in SODIUM CHLORIDE 0.9% 100 ML IV SCH (18:18)
[2025-03-07] MEDS ORDERED: Vancomycin IV 1 GM in SODIUM CHLORIDE 0.9% 250ML 250 ML IV ONE (18:30)
[2025-03-07] MEDS ORDERED: LEVOFLOXACIN500 MG PO (19:04)
[2025-03-07] MEDS ORDERED: PYRIDIUM100 MG PO (19:04)
[2025-03-07 19:15] VITALS: PULSE 71; RESP 19; TEMP 98.5
[2025-03-07] MEDS: LEVOFLOXACIN 500 MG TAB PO ONE (19:21)
[2025-03-07 20:05] VITALS: BP 151/71; PULSE 71; RESP 19; TEMP 98.5; O2SAT 98
== END 2025-03-07 20:07 | disposition home or self-care (01) ==
LOC: ER 15:45
DX: R35.0 Frequency of micturition (principal); N30.90 Cystitis, unspecified without hematuria; I10 Essential (primary) hypertension; E78.5 Hyperlipidemia, unspecified; I25.10 Atherosclerotic heart disease of native coronary artery without angina pectoris; Z95.1 Presence of aortocoronary bypass graft; Z95.810 Presence of automatic (implantable) cardiac defibrillator; Z87.442 Personal history of urinary calculi; Z86.14 Personal history of Methicillin resistant Staphylococcus aureus infection
CPT/HCPCS: 36415; 74176; 80053; 81001; 85025; 85610; 85730; 87086; 87186; 99284; J0692; J3373; J7030; J7050 ×2